=== PATIENT | female | born 1945 | race Caucasian/White ===

== ENCOUNTER 2019-11-10 13:54 | Outpatient (CLI) | payer MEDICARE, SELFPAY ==
[2019-11-10 14:06] LABS: Basophils Absolute Auto 0.1 K/mm3 (0.0-0.1); Basophils Percent Auto 0.8 % (0.2-1.2); Eosinophils Percent Auto 0.3 % (0-4.4); Hematocrit 42.5 % (37.0-47.0); Hemoglobin 14.3 g/dL (12.0-15.0); Immature Granulocyte Absolute 0.02 K/mm3 (0.00-0.031); Immature Granulocyte Percent A 0.2 % (0-0.5); Lymphocytes Absolute Auto 4.21 K/mm3 (0.9-3.2); Lymphocytes Percent Auto 47.8 % (18.3-44.2); Mean Corpuscular HGB Conc 33.6 g/dl (32-36); Mean Corpuscular Hemoglobin 31.8 pg (26-34); Mean Corpuscular Volume 94.4 fl (80-100); Monocytes Absolute Auto 0.8 K/mm3 (0.1-0.6); Monocytes Percent Auto 9.3 % (2.6-8.5); Neutrophils Absolute Auto 3.7 K/mm3 (1.3-6.7); Neutrophils Percent Auto 41.6 % (45.5-73.1); Platelet Count Result 198 k/mm3 (150-375); Red Cell Distribution Width 13.5 % (11.5-14.5); White Blood Count 8.8 K/mm3 (4.5-10.0)
[2019-11-10 14:10] LABS: Blood Urea Nitrogen 8 mg/dL (8-26); Carbon Dioxide 29 mmol/L (22-30); Chloride 102 mmol/L (98-109); Estimated Glomerular Filt Rate > 60; Glucose 123 mg/dL (70-105); Potassium 3.6 mmol/L (3.5-4.9); Sodium 140 mmol/L (138-146)
[2019-11-10 16:46] LABS: Alanine Aminotransferase 16 U/L (4-35); Albumin Level 4.4 g/dL (3.5-5.1); Alkaline Phosphatase 63 U/L (38-126); Aspartate Amino Transferase 25 U/L (14-36); Bilirubin,Total 0.3 mg/dL (0.2-1.3); Blood Urea Nitrogen 9 mg/dL (7-17); Calcium 9.5 mg/dL (8.4-10.2); Carbon Dioxide 29 mmol/L (22-30); Chloride 99 mmol/L (98-107); Estimated Glomerular Filt Rate > 60; Glucose 118 mg/dL (65-105); Lactate Dehydrogenase 403 U/L (313-618); Sodium 139 mmol/L (137-145)
== END 2019-11-10 13:55 | disposition home or self-care (01) ==
PROVIDERS: PCP Internal Medicine; Visit Provider Internal Medicine Hematology & Oncology
DX: C91.10 Chronic lymphocytic leukemia of B-cell type not having achieved remission (principal)
CPT/HCPCS: 36415; 80048; 80053; 83615; 85025

== ENCOUNTER 2020-06-18 13:10 | Outpatient (CLI) | payer MEDICARE, SELFPAY ==
[2020-06-18 13:40] LABS: Basophils Absolute Auto 0.1 K/mm3 (0.0-0.1); Basophils Percent Auto 0.6 % (0.2-1.2); Eosinophils Percent Auto 0.1 % (0-4.4); Hematocrit 43.5 % (37.0-47.0); Hemoglobin 14.8 g/dL (12.0-15.0); Immature Granulocyte Absolute 0.03 K/mm3 (0.00-0.031); Immature Granulocyte Percent A 0.3 % (0-0.5); Lymphocytes Percent Auto 58.7 % (18.3-44.2); Mean Corpuscular Hemoglobin 31.8 pg (26-34); Mean Corpuscular Volume 93.5 fl (80-100); Mean Platelet Volume 9.5 fl (7.4-10.4); Monocytes Absolute Auto 0.5 K/mm3 (0.1-0.6); Monocytes Percent Auto 4.7 % (2.6-8.5); Neutrophils Absolute Auto 3.5 K/mm3 (1.3-6.7); Neutrophils Percent Auto 35.6 % (45.5-73.1); Platelet Count Result 237 k/mm3 (150-375); Red Blood Count 4.65 M/mm3 (4.2-5.4); Red Cell Distribution Width 13.5 % (11.5-14.5); White Blood Count 9.9 K/mm3 (4.5-10.0)
[2020-06-18 13:47] LABS: Atypical Lymphocytes Present; Platelet Estimate Adequate (Adequate)
[2020-06-18 15:12] LABS: Blood Urea Nitrogen 9 mg/dL (8-26); Carbon Dioxide 28 mmol/L (22-30); Chloride 97 mmol/L (98-109); Estimated Glomerular Filt Rate > 60; Glucose 159 mg/dL (70-105); Potassium 3.6 mmol/L (3.5-4.9); Sodium 137 mmol/L (138-146)
[2020-06-18 16:35] LABS: Alanine Aminotransferase 15 U/L (4-35); Albumin Level 4.4 g/dL (3.5-5.1); Alkaline Phosphatase 56 U/L (38-126); Anion Gap 7 mmol/L (8-16); Aspartate Amino Transferase 24 U/L (14-36); Bilirubin,Total 0.6 mg/dL (0.2-1.3); Blood Urea Nitrogen 10 mg/dL (7-17); Calcium 9.6 mg/dL (8.4-10.2); Carbon Dioxide 32 mmol/L (22-30); Chloride 97 mmol/L (98-107); Estimated Glomerular Filt Rate > 60; Glucose 162 mg/dL (65-105); Sodium 136 mmol/L (137-145)
== END 2020-06-18 13:11 | disposition home or self-care (01) ==
PROVIDERS: Visit Provider Internal Medicine Hematology & Oncology
DX: C91.90 Lymphoid leukemia, unspecified not having achieved remission (principal)
CPT/HCPCS: 36415; 80048; 80053; 85025

== ENCOUNTER 2020-06-20 13:10 | Outpatient (CLI) | payer MEDICARE, SELFPAY ==
--- NOTE | ~2020-06-20 | MM_ITS ---
EXAMINATION: MM screening rylee BI w dilshad HISTORY: Screening mammogram TECHNIQUE: Craniocaudal and mediolateral oblique 3-D tomosynthesis images were obtained and synthetic 2-D images were generated. CAD analysis was submitted and interpreted. COMPARISON: 05/10/2018 BREAST PARENCHYMAL COMPOSITION: There are scattered areas of fibroglandular density. FINDINGS: There is no evidence of suspicious mass, calcification, or architectural distortion to sugg est malignancy in either breast. There has been no suspicious interval change. IMPRESSION: 1. No mammographic evidence of malignancy. 2. Recommend routine screening mammography in one year. BI-RADS Category 1: Negative Reviewed, dictated and finalized at location A.
== END 2020-06-20 13:11 | disposition home or self-care (01) ==
LOC: ANHIMG 13:15
DX: Z12.31 Encounter for screening mammogram for malignant neoplasm of breast (principal)
CPT/HCPCS: 77063; 77067

== ENCOUNTER 2020-06-25 10:36 | Outpatient (CLI) | payer MEDICARE, SELFPAY ==
--- NOTE | 2020-06-25 | EST_ITS ---
Patient Info Name: Karen Quevedo Age: 75 years : 1945 Gender: Female Ht: 63 in Wt: 150 lbs BSA: 1.76 m2 Exam Date: 06/25/2020 10:55 AM Exam Location: [facility] Stress Patient Status: Outpatient Admit Date: 06/25/2020 Staff Ordering Physician: PHYSICIAN NOT ON STAFF, NONSTAFF Attending Provider: PHYSICIAN NOT ON STAFF, NONSTAFF Exercise Technologist: Frances Paul RDCS Exam Type: CA stress test treadmill Study Info Indications R07.89 - Other chest pain A regadenoson stress test was performed. Summary 1. Normal sinus rhythm. 2. Low QRS voltage, otherwise normal ECG. 3. Clinically and electrocardiographically negative exercise stress test at 122% of age predicted maximum heart rate. Protocol: [facility] Stress ECG Details Stage: REST Duration (min): 6 min : 4 sec Speed (mph): 0.0 Grade (%): 0 HR (bpm): 76 SBP (mmHg): 109 DBP (mmHg): 64 METS: --- Stage: REST Duration (min): 17 min : 20 sec Speed (mph): 0.0 Grade (%): 0 HR (bpm): 94 SBP (mmHg): 109 DBP (mmHg): 64 METS: --- Stage: STAGE 1 Duration (min): 1 min : 0 sec Speed (mph): 1.7 Grade (%): 10 HR (bpm): 106 SBP (mmHg): 109 DBP (mmHg): 64 METS: --- Stage: STAGE 1 Duration (min): 2 min : 0 sec Speed (mph): 1.7 Grade (%): 10 HR (bpm): 126 SBP (mmHg): 109 DBP (mmHg): 64 METS: --- Stage: STAGE 1 Duration (min): 3 min : 0 sec Speed (mph): 1.7 Grade (%): 10 HR (bpm): 133 SBP (mmHg): 134 DBP (mmHg): 76 METS: --- Stage: STAGE 2 Duration (min): 1 min : 0 sec Speed (mph): 2.5 Grade (%): 12 HR (bpm): 162 SBP (mmHg): 134 DBP (mmHg): 76 METS: --- Stage: STAGE 2 Duration (min): 2 min : 0 sec Speed (mph): 2.5 Grade (%): 12 HR (bpm): 175 SBP (mmHg): 171 DBP (mmHg): 77 METS: --- Stage: STAGE 2 Duration (min): 2 min : 22 sec Speed (mph): 2.5 Grade (%): 12 HR (bpm): 179 SBP (mmHg): 171 DBP (mmHg): 77 METS: --- Stage: RECOVERY Duration (min): 0 min : 37 sec Speed (mph): 0.0 Grade (%): 0 HR (bpm): 166 SBP (mmHg): 171 DBP (mmHg): 77 METS: --- Stage: RECOVERY Duration (min): 1 min : 37 sec Speed (mph): 0.0 Grade (%): 0 HR (bpm): 143 SBP (mmHg): 154 DBP (mmHg): 91 METS: --- Stage: RECOVERY Duration (min): 2 min : 37 sec Speed (mph): 0.0 Grade (%): 0 HR (bpm): 124 SBP (mmHg): 133 DBP (mmHg): 88 METS: --- Stage: RECOVERY Duration (min): 3 min : 37 sec Speed (mph): 0.0 Grade (%): 0 HR (bpm): 116 SBP (mmHg): 133 DBP (mmHg): 88 METS: --- Stage: RECOVERY Duration (min): 4 min : 37 sec Speed (mph): 0.0 Grade (%): 0 HR (bpm): 108 SBP (mmHg): 128 DBP (mmHg): 85 METS: --- Stage: RECOVERY
== END 2020-06-25 10:37 | disposition home or self-care (01) ==
DX: R07.89 Other chest pain (principal)
CPT/HCPCS: 93017

== ENCOUNTER 2020-09-05 06:54 | Outpatient (NON) | payer MEDICARE, SELFPAY ==
[2020-09-05 22:32] LABS: SARS-CoV-2 RNA PCR Positive
== END 2020-09-05 06:55 ==
LOC: ANHCOVIDDT 07:04
DX: U07.1 COVID-19 (principal)
CPT/HCPCS: 87635; C9803; U0003

== ENCOUNTER 2020-12-05 16:32 | Inpatient (IN) | payer MEDICARE, SELFPAY ==
--- NOTE | ~2020-12-05 | XR_ITS ---
EXAMINATION: XR surgery orthopedic DATE: 12/06/2020 13:50 INDICATION: Intertrochanteric nailing of a proximal right femoral fracture. TECHNIQUE: 4 fluoroscopic spot images of the proximal right femur were obtained during procedure perf ormed by Dr. Garcia. Radiologist was not present for the imaging or procedure. The amount of fluoros copy time used during this procedure was 7.1 minutes. COMPARISON: 12/05/2020 FINDINGS: Interval reduction and internal fixation of an intratrochanteric fracture of the proximal right femur with antegrade intramedullary kwadwo, distal interlocking screw and femoral neck dynamic compression sc rew. There is a thin curved opacity projecting over the femoral diaphysis caudal to the intramedullar y kwadwo on one of the fluoroscopic images without correlate on the prior images or the corresponding la teral projection most likely artifact related to material external to the patient although nondisplac ed fracture cannot be absolutely excluded. No other lesions suspicious for fracture. Alignment appear s essentially anatomic. Right hip joint space is relatively preserved. IMPRESSION: 1. Near-anatomic alignment post internal fixation of an intratrochanteric fracture of the proximal ri ght femur. 2. Curvilinear opacity projecting over the right femoral diaphysis inferior to the fixation kwadwo is mo st likely artifactual but would recommend repeat dedicated radiographs to exclude a nondisplaced frac ture. Reviewed, dictated and finalized at location B. IMPRESSION: 1. Near-anatomic alignment post internal fixation of an intratrochanteric fract ure of the proximal right femur. 2. Curvilinear opacity projecting over the right femoral diaphysis inferior to the fixation kwadwo is most likely artifactual but would recommend repeat dedicate d radiographs to exclude a nondisplaced fracture.
--- NOTE | ~2020-12-05 | XR_ITS ---
EXAMINATION: XR hip RT 2V w AP pelvis EXAM DATE: 12/05/2020 17:09 INDICATION: Initial encounter following injury, with pain of the right hip. TECHNIQUE: Right hip frontal, crosstable lateral projections for interpretation. Frontal projection p ganesh. There is no prior study for comparison. FINDINGS: There is acute closed posttraumatic right hip intertrochanteric fracture with only about 5 mm of distraction. No hip dislocation. Pelvic ring appears intact as do the sacral arcuate lines. IMPRESSION: Acute right hip intertrochanteric fracture. Reviewed, dictated and finalized at location G.
--- NOTE | ~2020-12-05 | XR_ITS ---
EXAMINATION: XR chest 1V portable EXAM DATE: 12/05/2020 17:09 INDICATION: Fall, right hip pain. TECHNIQUE: Portable AP frontal chest x-ray was obtained. There is no prior study for comparison. FINDINGS: The lungs are clear. There are no pleural effusions. The cardiomediastinal silhouette is within normal limits. There is no pneumothorax suspected. There are mild bony degenerative changes. IMPRESSION: No acute cardiopulmonary findings. Reviewed, dictated and finalized at location G.
[2020-12-05 16:38] VITALS: BP 113/78; PULSE 73; RESP 10; TEMP 36.5; O2SAT 99
--- NOTE | 2020-12-05 16:39 | ECG_ITS ---
Measurements Intervals [place] Rate: 83 P: 33 OH: 151 QRS: 17 QRSD: 90 T: 42 QT: 376 QTc: 443 Interpretive Statements SINUS RHYTHM BASELINE WANDER- V1 NORMAL ECG Electronically Signed On 12-06-2020 10:01:24 CDT by Pedro Lebron D.O.
--- NOTE | 2020-12-05 16:40 | ED.FALL ---
HPI - Fall General Chief Complaint: Fall Stated Complaint: FALL/L HIP PAIN Time Seen by Provider: 12/05/20 16:36 Source: patient Mode of arrival: EMS Limitations: no limitations History of Present Illness HPI Narrative: This is a 75 year old female with history of right hip pain s/p fall. She was walking into [employer] when she slipped and fell. She fell onto her right hip and she has severe pain. She is unable to move right hip due to her pain. She denies numbness or tingling. She denies LOC or hitting her head. Related Data Home Medications Medication Instructions Recorded Confirmed alendronate 70 mg PO WEEKLY 12/05/20 12/05/20 Allergies Allergy/AdvReac Type Severity Reaction Status Date / Time No Known Allergies Allergy Unverified 07/23/11 11:49 Review of Systems Review of Systems: All systems reviewed & are unremarkable except as noted in HPI and below Cardiovascular: Cardiovascular: Denies chest pain Respiratory: Respiratory: Denies cough and Denies dyspnea Gastrointestinal: Gastrointestinal: Denies abdominal pain and Denies nausea Musculoskeletal: Musculoskeletal: Denies back pain and Reports arthralgias (right hip pain) Neurologic: Denies headache(s) [facility] Past Medical History Medical History (Updated 12/06/20 @ 00:09 by Alyson Elaine MD) Osteoporosis Surgical History Surgical History (Updated 12/05/20 @ 16:49 by Alyson Elaine MD) History of ankle surgery Social History Social History (Updated 12/05/20 @ 16:50 by Alyson Elaine MD) Smoking status: Former smoker Alcohol intake: current Drinks per week: 14 Substance use: never Gender identity (if verbalized by the patient): Female Spiritual care concerns: No Exam Const: General: no acute distress and alert Orientation/consciousness: patient oriented x3 Eyes: EOM: EOMs intact bilaterally Chest: Chest palpation & inspection: normal inspection of the chest Resp: Effort & Inspection: normal respiratory effort and no retractions Auscultation: clear to auscultation bilaterally Cardio: Rate: regular rate Rhythm: regular rhythm Heart sounds: no murmurs GI: GI Palp: Yes Soft to palpation, No Tenderness to palpation present (GI) and No Guarding due to palpation present (GI) Auscultation: normal bowel sounds Skin: General skin exam: normal color Rashes: no rashes Neuro: General: patient oriented x3 and moves all extremities Extrem: Other: TTP right hip Psych: Mental Status: mental status grossly normal Affect: normal affect Course Consultations Consultation #1: I Discussed hip fracture with Dr. Burnham. He states he will consult and patient needs to be admitted to hospitalist Date: 12/05/20 Time: 17:42 Consultation #2: I discussed case with Erma Nguyen who accepts patient to hospitalist service. Date: 12/05/20 Time: 18:10 Vital Signs Vital signs: Vital Signs Temperature 97.7 F 12/05/20 16:38 Pulse Rate 73 12/05/20 16:38 Respiratory Rate 10 L 12/05/20 16:38 Blood Pressure 113/78 12/05/20 16:38 Pulse Oximetry 99 12/05/20 16:38 Temperature 97.6 F 12/05/20 20:30 Pulse Rate 66 12/05/20 20:30 Respiratory Rate 18 12/05/20 20:30 Blood Pressure 108/64 12/05/20 20:30 Pulse Oximetry 99 12/05/20 20:30 MDM - Fall Lab Data Attestation: I reviewed the patient's lab results. Result diagrams: 12/05/20 17:47 12/05/20 17:47 Labs: Lab Results 12/05/20 12/05/20 12/05/20 Range/Units 17:47 17:47 17:47 WBC 12.7 H (4.5-10.0) K/mm3 RBC 4.39 (4.2-5.4) M/mm3 Hgb 13.5 (12.0-15.0) g/dL Hct 40.3 (37.0-47.0) % MCV 91.8 (80-100) fl MCH 30.8 (26-34) pg MCHC 33.5 (32-36) g/dl RDW 14.5 (11.5-14.5) % Plt Count 252 (150-375) k/mm3 MPV 9.7 (7.4-10.4) fl Immature Gran % (Auto) 0.2 (0-0.5) % Neut % (Auto) 37.3 L (45.5-73.1) % Lymph % (Auto) 55.9 H (18.3-44.2) % [place] % (Au
[2020-12-05] MEDS: ONDANSETRON INJ 4 MG/2 ML VIAL IV PUSH ×2 (17:18→19:46)
[2020-12-05] MEDS: HYDROmorphone HCL INJ (*CRX) 1 MG/ML SYR IV PUSH (17:19)
[2020-12-05 17:55] LABS: Basophils Absolute Auto 0.1 K/mm3 (0.0-0.1); Basophils Percent Auto 0.6 % (0.2-1.2); Eosinophils Percent Auto 0.2 % (0-4.4); Hematocrit 40.3 % (37.0-47.0); Hemoglobin 13.5 g/dL (12.0-15.0); Immature Granulocyte Absolute 0.03 K/mm3 (0.00-0.031); Immature Granulocyte Percent A 0.2 % (0-0.5); Lymphocytes Absolute Auto 7.09 K/mm3 (0.9-3.2); Lymphocytes Percent Auto 55.9 % (18.3-44.2); Mean Corpuscular HGB Conc 33.5 g/dl (32-36); Mean Corpuscular Hemoglobin 30.8 pg (26-34); Mean Corpuscular Volume 91.8 fl (80-100); Mean Platelet Volume 9.7 fl (7.4-10.4); Monocytes Absolute Auto 0.7 K/mm3 (0.1-0.6); Monocytes Percent Auto 5.8 % (2.6-8.5); Neutrophils Absolute Auto 4.7 K/mm3 (1.3-6.7); Neutrophils Percent Auto 37.3 % (45.5-73.1); Platelet Count Result 252 k/mm3 (150-375); Red Blood Count 4.39 M/mm3 (4.2-5.4); Red Cell Distribution Width 14.5 % (11.5-14.5); White Blood Count 12.7 K/mm3 (4.5-10.0)
--- NOTE | 2020-12-05 17:55 | PC.NURSE ---
patient is unable to give urine sample at this time. patient declines straight cath.
[2020-12-05 17:56] VITALS: BP 123/70; PULSE 78; RESP 18; O2SAT 99
[2020-12-05 18:04] LABS: INR 0.8; Prothrombin Time 12.1 Seconds (11.1-14.7)
[2020-12-05 18:05] LABS: Partial Thromboplastin Time 22.9 SECONDS (22.3-36.8)
[2020-12-05 18:11] LABS: Alanine Aminotransferase 18 U/L (4-35); Albumin Level 3.9 g/dL (3.5-5.1); Alkaline Phosphatase 62 U/L (38-126); Anion Gap 6 mmol/L (8-16); Aspartate Amino Transferase 30 U/L (14-36); Bilirubin,Total 0.3 mg/dL (0.2-1.3); Blood Urea Nitrogen 14 mg/dL (7-17); Calcium 8.6 mg/dL (8.4-10.2); Carbon Dioxide 25 mmol/L (22-30); Chloride 102 mmol/L (98-107); Estimated CRCL calculation 77 ml/min; Estimated Glomerular Filt Rate > 60; Glucose 94 mg/dL (65-105); Sodium 133 mmol/L (137-145)
[2020-12-05 18:21] LABS: Potassium 3.7 mmol/L (3.4-5.0)
[2020-12-05 19:29] VITALS: BP 110/68; PULSE 68; RESP 16; O2SAT 100
[2020-12-05 20:30] VITALS: BP 108/64; PULSE 66; RESP 18; TEMP 36.4; O2SAT 99
[2020-12-05 21:03] VITALS: BMI 26.5
[2020-12-05] MEDS: LACTATED RINGERS 1,000 ML 125 ML IV CONT (21:04)
--- NOTE | 2020-12-05 21:26 | PC.NURSE ---
This patient, Karen Quevedo, was admitted to 2 Medical Room 259-01. Patient/family oriented to hospital policies and general routines including ID bracelet, bed and alarms, visiting hours, pain management, procedures, bathroom and other care routines, personal items, smoking policy, room service/diet, and visiting hours. Information on how to activate the Rapid Response Team has been discussed. Patient/Family are encouraged to report perceived risks to care and to ask questions if they do not understand what they are told or what they should do.
[2020-12-05 22:00] VITALS: BP 111/65; PULSE 71; RESP 18; TEMP 36.6; O2SAT 98
[2020-12-05] MEDS: HYDROmorphone HCL INJ (*CRX) 1 MG/ML SYR 0.5 MG IV PUSH (22:53)
[2020-12-05 23:32] LABS: Add Urine Microscopic? YES; Appearance Urine Cloudy (Clear); Bilirubin Urine Negative (Negative); Blood Urine Negative (Negative); Color Urine Yellow (Yellow); Glucose Urine UA Negative (Negative); Ketones Urine 1+ mg/dL (Negative); Leukocyte Esterase Ur Negative LEU/UL (Negative); Mucus Urine Few /lpf; Nitrate Urine Negative (Negative); Protein Urine 1+ mg/dL (Negative); RBC Urine 0-2 /hpf (0-2); Specific Grav Ur 1.019 (1.001-1.035); Urobilinogen Urine Negative mg/dL (<2.0)
[2020-12-06] VITALS (18 sets, daily range): BP systolic 101–130; BP diastolic 55–89; PULSE 45–108; RESP 12–20; TEMP 36.2–36.8; O2SAT 94–100; BMI 26.5
[2020-12-06] MEDS: CALCIUM CARBONATE (TUMS) 500 MG (200 MG ELEMENTAL) PO (01:29)
[2020-12-06] MEDS: FAMOTIDINE 20 MG/2 ML VIAL IV PUSH (01:31)
--- NOTE | 2020-12-06 03:09 | PM.IMHP ---
H&P: HPI History of Present Illness Date/Time: 12/06/20 03:09 Chief Complaint: Acute fall and ambulatory dysfunction. Narrative: This is a pleasant 75 year old female who is known to previously be healthy and presented to the hospital yesterday after suffering a fall at the grocery store. The patient walked into [employer] and slipped on a wet floor and landed on her right hip. She could not get up and was in severe pain. She did not suffer any head trauma or loss of consciousness. Plain xray films demonstrated an acute right hip intertrochanteric fracture. The patient denied any fever, chills, nausea, vomiting, chest pain, palpitations, abdominal pain, dysuria, hematuria, diarrhea or LE swelling. Currently her only complaint is right hip pain which is improved when she doens't move. Ortho was consulted by ER provider. We were asked to admit her to the hospital for orthopedics. No other complaints. Review of Systems Review of Systems: All systems reviewed & are unremarkable except as noted in HPI and below PMFSH Past Medical History Medical History Osteoporosis Surgical History Surgical History History of ankle surgery Social History Social History Smoking status: Former smoker Alcohol intake: current Drinks per week: 14 Substance use: never Gender identity (if verbalized by the patient): Female Spiritual care concerns: No Comments Family medical history is reviewed and unremarkable. Meds Home Medications and Allergies Home Medications Medication Instructions Recorded Confirmed Type alendronate 70 mg PO WEEKLY 12/05/20 12/05/20 History Allergies Allergy/AdvReac Type Severity Reaction Status Date / Time No Known Allergies Allergy Unverified 07/23/11 11:49 Vital Signs Vital Signs - 24 hr 12/05/20 16:38 12/05/20 17:56 12/05/20 19:29 Temperature 36.5 C Pulse Rate 73 78 68 Respiratory Rate 10 L 18 16 Blood Pressure 113/78 123/70 110/68 Pulse Oximetry 99 99 100 12/05/20 20:30 Temperature 36.4 C Pulse Rate 66 Respiratory Rate 18 Blood Pressure 108/64 Pulse Oximetry 99 Exam Const: General: cooperative, alert and awake Nutritional Appearance: well nourished Orientation/consciousness: patient oriented x3 HENMT: Head: normal to inspection General nose exam: Normal external nose present Face and sinus: normal facial exam Mouth: Yes Normal oral and palatal mucosa present and Yes oropharynx normal Eyes: Pupils: Equal, round and reactive pupils present EOM: EOMs intact bilaterally Neck: Neck: supple and no JVD Thyroid: thyroid normal Lymphatic: lymphadenopathy not noted Resp: Effort & Inspection: normal respiratory effort Auscultation: clear to auscultation bilaterally Cardio: Rate: regular rate Rhythm: regular rhythm Heart sounds: no murmurs GI: Inspection: normal to inspection Auscultation: normal bowel sounds Skin: General skin exam: normal color and no rashes or lesions noted Neuro: General: patient oriented x3 Cranial nerves: Yes CN's II-XII intact bilaterally and Yes Equal, round and reactive pupils present Speech: normal speech Motor exam (neuro): 5/5 motor strength present throughout Sensory Exam: normal sensation Extrem: General: normal to inspection and no edema Other: Right hip pain w/ manipulation of RLE++ Psych: Mental Status: mental status grossly normal Affect: normal affect H&P: Results Labs Labs: Short CBC 12/05/20 Range/Units 17:47 WBC 12.7 H (4.5-10.0) K/mm3 Hgb 13.5 (12.0-15.0) g/dL Hct 40.3 (37.0-47.0) % Plt Count 252 (150-375) k/mm3 BMP 12/05/20 17:47 Sodium 133 L Potassium 3.7 Chloride 102 Carbon Dioxide 25 BUN 14 Creatinine 0.50 L Glucose 94 Calcium 8.6 Liver Function 12/05/20 Range/Units 17:47
[2020-12-06] MEDS: LACTATED RINGERS 1,000 ML 125 ML IV CONT (05:11)
[2020-12-06] MEDS: HYDROmorphone HCL INJ (*CRX) 1 MG/ML SYR 0.5 MG IV PUSH ×3 (07:45→15:29)
--- NOTE | 2020-12-06 09:18 | PM.CNOR ---
Assessment and Plan Assessment and plan (1) Closed intertrochanteric fracture of right femur: Qualifiers: Encounter type: initial encounter Fracture alignment: nondisplaced Qualified Code(s): S72.144A - Nondisplaced intertrochanteric fracture of right femur, initial encounter for closed fracture Code(s): S72.141A - Displaced intertrochanteric fracture of right femur, initial encounter for closed fracture Status: Acute Assessment and Plan: 75-year-old female admitted status post fall onto the right hip at the grocery store. History, exam and radiographs reviewed with the patient. Radiographs of the right hip reveal an acute right hip intertrochanteric fracture. Discussed condition, nature, etiology and course of natural history. Conservative and operative treatment options reviewed as well as the risks and benefits of each. Patient would like to proceed with surgical intervention at this time. Discussed Right Intramedullary Hip Nail Risks of surgery including but not limited to neurovascular damage, wound complications, blood clot, pulmonary embolus, stroke, myocardial infarction, anesthetic risks up to and including were reviewed. Continued pain and possible dysfunction were explained. No guarantees were offered. The patient understands and wishes to proceed. Plan: Right Intramedullary Hip Nail by Dr. Garcia pending medical clearance NPO in the interim. Pain control. Ice Lateral Hip. Bedrest. History of Present Illness HPI Consult date: 12/06/20 Requesting physician: Alyson Elaine MD Consult reason: fracture ( Right Hip Fracture ) Chief complaint: closed right intertrochanteric fracture femur Narrative: 75-year-old female admitted to [facility] status post fall at [facility] in [place], [place] after slipping on water. Patient reports having walked into the store and slipped on water and fell onto the right side was unable to get up due to extreme pain. She was then admitted to [facility] and radiographs of the right hip were obtained. Radiographs of the right hip revealed an acute right hip intertrochanteric fracture. orthopedic consult requested for fracture management. Patient admitted to the hospitalist service. Review of Systems Constitutional: Constitutional: Reports no additional constitutional complaints, Denies chills, Denies fatigue, Denies fever(s), Denies headache(s) and Denies weakness Eyes: Eyes: Denies change in vision ENT: Reports Normal hearing present and Denies headache(s) Cardiovascular: Cardiovascular: Denies chest pain and Denies dyspnea Respiratory: Respiratory: Denies cough, Denies dyspnea and Denies wheezing Gastrointestinal: Gastrointestinal: Denies constipation, Denies diarrhea, Denies nausea and Denies vomiting Genitourinary: Genitourinary: Denies hematuria, Denies dysuria and Denies urinary urgency Musculoskeletal: Musculoskeletal: Reports as per HPI, Denies numbness and Denies tingling Integumentary/Breasts: Skin/Breast: Reports as per HPI Neurologic: Reports as per HPI, Reports Normal hearing present, Denies headache(s), Denies numbness, Denies tingling and Denies weakness Psychiatric: Psychiatric: Reports no additional psychiatric complaints Endocrine: Endocrine: Reports no additional endocrine complaints and Denies fatigue Hematologic/Lymphatic: Hematologic/Lymphatic: Reports no additional hematologic/lymphatic complaints Allergic/Immunologic: Allergic/Immunologic: Reports no additional allergic/immunologic complaints and Denies wheezing PMFSH Past Medical History Medical History Osteoporosis Surgical History Surgical History (Updated 12/06/20 @ 09:24 by GA Slade) History of ankle surgery History of right foot and ankle surgery approximately 20 years ago. Patient is unable to describe nature of surgery. History of breast lump removal So
--- NOTE | 2020-12-06 09:41 | WPDANESEPPF ---
Anes - Initial Pre Proc Eval Procedure: Operation Date: 12/06/20 12:00 Proposed Procedures p Right Intertrochanteric Nail - Sal Garcia MD Date/Time: 12/06/20 09:41 Surgeon: Noelle Hussein PA-C Pre Op Diagnosis: closed right intertrochanteric fracture femur Patient Data Age: 75 Gender: F Height: 1.6 m Weight: 67.9 kg Last Vital Signs Temp 36.7 C 12/06/20 06:00 Pulse 70 12/06/20 06:00 Resp 16 12/06/20 06:00 BP 101/55 L 12/06/20 06:00 Pulse Ox 98 12/06/20 06:00 Allergies Allergy/AdvReac Type Severity Reaction Status Date / Time No Known Allergies Allergy Unverified 07/23/11 11:49 Home Medications Medication Instructions Recorded Confirmed Type alendronate 70 mg PO WEEKLY 12/05/20 12/05/20 History Laboratory Tests 12/05/20 12/05/20 12/05/20 17:47 17:47 17:47 WBC 12.7 K/mm3 H K/mm3 (4.5-10.0) RBC 4.39 M/mm3 M/mm3 (4.2-5.4) Hgb 13.5 g/dL g/dL (12.0-15.0) Hct 40.3 % % (37.0-47.0) MCV 91.8 fl fl (80-100) MCH 30.8 pg pg (26-34) MCHC 33.5 g/dl g/dl (32-36) RDW 14.5 % % (11.5-14.5) Plt Count 252 k/mm3 k/mm3 (150-375) MPV 9.7 fl fl (7.4-10.4) Immature Gran % (Auto) 0.2 % % (0-0.5) Neut % (Auto) 37.3 % L % (45.5-73.1) Lymph % (Auto) 55.9 % H % (18.3-44.2) [place] % (Auto) 5.8 % % (2.6-8.5) Eos % (Auto) 0.2 % % (0-4.4) Baso % (Auto) 0.6 % % (0.2-1.2) Lymph # (Auto) 7.09 K/mm3 H K/mm3 (0.9-3.2) [place] # (Auto) 0.7 K/mm3 H K/mm3 (0.1-0.6) Eos # (Auto) 0.0 K/mm3 K/mm3 (0-0.3) Baso # (Auto) 0.1 K/mm3 K/mm3 (0.0-0.1) Abs Immat Gran (auto) 0.03 K/mm3 K/mm3 (0.00-0.031) Absolute Neuts (auto) 4.7 K/mm3 K/mm3 (1.3-6.7) Absolute Nucleated RBC 0.0 K/mm3 K/mm3 (0.0-0.012) Nucleated RBC % 0.0 % % (0.0-0.2) PT 12.1 Seconds Seconds (11.1-14.7) INR 0.8 APTT 22.9 SECONDS SECONDS (22.3-36.8) Sodium 133 mmol/L L mmol/L (137-145) Potassium 3.7 mmol/L mmol/L (3.4-5.0) Chloride 102 mmol/L mmol/L (98-107) Carbon Dioxide 25 mmol/L mmol/L (22-30) Anion Gap 6 mmol/L L mmol/L (8-16) BUN 14 mg/dL mg/dL (7-17) Creatinine 0.50 mg/dL L mg/dL (0.7-1.0) Estim Creat Clear Calc 77 ml/min ml/min Estimated GFR > 60 (59 - ) Glucose 94 mg/dL mg/dL (65-105) Calcium 8.6 mg/dL mg/dL (8.4-10.2) Total Bilirubin 0.3 mg/dL mg/dL (0.2-1.3) AST 30 U/L U/L (14-36) ALT 18 U/L U/L (4-35) Alkaline Phosphatase 62 U/L U/L (38-126) Total Protein 6.0 g/dL L g/dL (6.3-8.2) Albumin 3.9 g/dL g/dL (3.5-5.1) Urine Color Urine Appearance Urine pH Ur Specific [place] Urine Protein Urine Glucose (UA) Urine Ketones Ur Blood (Man) Urine Nitrate Urine Bilirubin Urine Urobilinogen Leukocyte Esterase Rfl Urine RBC Urine WBC Urine Mucus 12/05/20 23:14 WBC RBC Hgb Hct MCV MCH MCHC RDW Plt Count MPV Immature Gran % (Auto) Neut % (Auto) Lymph % (Auto) [place] % (Auto) Eos % (Auto) Baso % (Auto) Lymph # (Auto) [place] # (Auto) Eos # (Auto) Baso # (Auto) Abs Immat Gran (auto) Absolute Neuts (auto) Absolute Nucleated RBC Nucleated RBC % PT INR APTT Sodium Potassium Chloride Carbon Dioxide Anion Gap BUN Creatinine Estim Creat Clear Calc
[2020-12-06] MEDS: LACTATED RINGERS 1,000 ML 30 ML IV CONT ×2 (11:02→14:08)
[2020-12-06] MEDS: TRANEXAMIC ACID 1,000MG/ISO100 1,000 MG/100 ML BAG 200 MG IVPB (11:17)
--- NOTE | 2020-12-06 11:18 | PCNSR ---
On 12/06/20, the student, Tracy Diaz, provided care and completed [place] hospital documentation on this patient. I have reviewed the student's documentation and agree with the findings.
--- NOTE | 2020-12-06 11:45 | WPDHPUPDATE1 ---
History and Physical Update Update Date/Time: 12/06/20 11:45 History and Physical has been reviewed, including an updated exam of the patient. There are NO changes in the patient's condition. Risks, benefits, and alternatives have been discussed and questions answered. Patient agrees to proceed with procedure.
[2020-12-06] MEDS: ceFAZolin 2 GM/D5W 50 ML 2 GM/50 ML BAG IVPB ×2 (12:06→20:13)
--- NOTE | 2020-12-06 12:20 | PC.NURSE ---
Pt to OR per bed 12/06/20 1030.
[2020-12-06] MEDS: fentaNYL CITRATE INJ (*CRX) 100 MCG/2 ML VIAL 25 MCG IV PUSH ×4 (14:27→14:47)
--- NOTE | 2020-12-06 16:12 | PM.PROC ---
Procedure Note - Detailed Date of procedure: 12/06/20 Pre-op diagnosis: closed right intertrochanteric fracture femur Post-op diagnosis: same Procedure performed: INSERTION OF GAMMA ANDRES RIGHT HIP FRACTURE Description of procedure: THE PATIENT WAS TAKN TO THE OR AND PLACED ON A FRACTURE TABLE AFTER HAVEN BEEN GIVEN GENERAL ANESTHESIA. THE RIGHT LOWER EXTREMITY WAS PLACED IN A TRACTION BOOT AND USING SOME TRACTION AND INTERNAL ROTATION THE INNER TROCH FRACTURE WAS REDUCED TO ANATOMIC POSITION. NEXT THE RIGHT LOWER EXTREMITY WAS PREPPED AND DRAPED IN THE STERILE FASHION. AN INCISION WAS MADE PROXIMAL TO THE TIP OF THE GREATER TROCHANTER AND DISSECTION CONTINUED TILL THE TIP OF THE GREATER TROCHANTER WAS PALPATED. A GUIDE WAS PLACED DOWN THE FEMORAL CANAL AND PAST THE FRACTURE SITE. THIS WAS CHECKED ON FLUOROSCOPY AND FOUND TO BE IN GOOD POSITION. AN INITIAL REAMER WAS USED TO REAM THE FEMORAL CANAL. AN 11 BY 180 MM GAMMA ANDRES WAS INSERTED TILL THE CORRECT POSITION WAS IDENTIFIED ON XRAY. A GUIDE PIN WAS INSERTED AT 125 DEG ANGLE TILL IT REACHED THE TIP OF THE SUB CHONDRAL BONE SEEN ON XRAY. AFTER REAMING, LAG SCREW WAS INSERTED AT 125 DEG ANGLE MEASURING 110 MM. XRAYS SHOWED IT TO BE IN GOOD POSITION. THE LAG SCREW WAS LOCKED PROXIMALLY WITH A LOCKING SCREW. NEXT A DISTAL LOCKING SCREW WAS PLACED ACROSS THE ANDRES AND WAS IN GOOD POSITION ON XRAY. THE TRACTION WAS RELEASED. THE WOUNDS WERE WASHED. THE DEEP FASCIA WAS REPAIRED WITH 0 VICRYL SUTURE, THE SUB CUTANEOUS LAYER WITH 2-0 VICRYL, AND THE SKIN WITH RAAD. THE WOUNDS WERE WASHED AND THEN STERILE DRESSING WAS APPLIED. PATIENT WAS EXTUBATED AND SENT TO RECOVERY ROOM. Anesthesia: GLMA Surgeon: Sal Garcia MD Estimated blood loss (mL): 750 Drains: No Packing: No Pathology: none sent Complications: No immediate complications Condition: stable Disposition: PACU
[2020-12-06] MEDS: DEXTROSE 5%/0.45% SOD CHL 1,000 ML 80 ML IV CONT (16:45)
[2020-12-06] MEDS: ONDANSETRON INJ 4 MG/2 ML VIAL IV PUSH ×2 (16:45→20:13)
[2020-12-06] MEDS: HYDROcodone/acetaminophen (*CRX) 7.5-325 MG TABLET 1 TAB PO (16:59)
[2020-12-06] MEDS: DOCUSATE SODIUM 100 MG CAPSULE PO (17:00)
--- NOTE | 2020-12-06 17:08 | PM.IMPN ---
Progress Note: A&P Assessment and Plan (1) Closed intertrochanteric fracture of right femur: Qualifiers: Encounter type: initial encounter Fracture alignment: nondisplaced Qualified Code(s): S72.144A - Nondisplaced intertrochanteric fracture of right femur, initial encounter for closed fracture Code(s): S72.141A - Displaced intertrochanteric fracture of right femur, initial encounter for closed fracture Status: Acute Assessment and Plan: Patient had slipped and fallen prior to arrival and had sudden pain to her right hip and was unable to get up. Found to have a intertrochanteric fracture of her right hip. She underwent surgery on 12/06/[address] Garcia. Dunham catheter, DC per ortho. Continue pain control as needed, per ortho. Discharge planning per it Ortho PT OT have been ordered Incentive spirometer to be used postop Continue monitoring. (2) Osteoporosis: Code(s): M81.0 - Age-related osteoporosis without current pathological fracture Status: Inactive Assessment and Plan: Continue her alendronate weekly. Time Spent With Patient Time with patient: 25 - 35 minutes Subjective Date/time seen: 12/06/20 17:08 Interval history: Date of service 12/06/2020: Patient is drowsy after coming back from surgery on her hip. She still has significant pain to her hip and feels like she never had surgery. She is having some nausea at this time postop from anesthesia. Pain. She denies any fevers, chills, abdominal pain, constipation, diarrhea, leg swelling, calf pain, lightheadedness, dizziness or any other symptoms at this time. Review of Systems Review of Systems: All systems reviewed & are unremarkable except as noted in HPI and below Exam Narrative: Exam Narrative: General: 75-year-old woman laying flat in bed with head elevated at 40?, resting comfortably on 2 L of oxygen at this time postop, with her sister at bedside. Appears comfortable. In no acute distress. Skin: No jaundice or cyanosis. Good skin turgor. Neck: Full range of motion. Supple. Respiratory: Lungs are clear to auscultation bilaterally. No wheezing, rales or rhonchi. No bony chest wall tenderness. Cardiovascular: The heart has a regular rate and rhythm without murmur. Lower extremities: Right hip with dressing to lateral aspect. No lower extremity edema. Distal pulses are easily palpated. No calf tenderness to palpation. Gastrointestinal: The abdomen is soft, nontender and nondistended with active bowel sounds. Psychiatric: Lucid and oriented. Memory intact. Neurologic: No focal deficits. Speech is clear. No facial drooping. Objective Data Vital Signs Vital Signs: Vital Signs - 24 hr 12/05/20 17:56 12/05/20 19:29 12/05/20 20:30 Temperature 97.6 F Pulse Rate 78 68 66 Respiratory Rate 18 16 18 Blood Pressure 123/70 110/68 108/64 Pulse Oximetry 99 100 99 12/05/20 22:00 12/06/20 06:00 12/06/20 09:59 Temperature 97.8 F 98.0 F Pulse Rate 71 70 45 L Respiratory Rate 18 16 16 Blood Pressure 111/65 101/55 L Pulse Oximetry 98 98 99 12/06/20 10:49 12/06/20 14:08 12/06/20 14:15 Temperature 97.5 F L 98.3 F Pulse Rate 60 108 H 101 H Respiratory Rate 16 18 18 Blood Pressure 113/61 127/73 130/79 Pulse Oximetry 95 100 100 12/06/20 14:30 12/06/20 14:45 12/06/20 15:00 Temperature Pulse Rate 99 85 87 Respiratory Rate 16 14 18 Blood Pressure 108/81 130/72 127/70 Pulse Oximetry 94 96 98 12/06/20 15:15 12/06/20 15:30 12/06/20 15:45 Temperature Pulse Rate 75 90 95 Respiratory Rate 12 16 20 Blood Pressure 126/64 119/75 120/78 Pulse Oximetry 97 97 96 12/06/20 16:10 12/06/20 16:20 12/06/20 16:25 Temperature 98.1 F 98.1 F Pulse Rate 68 92 Respiratory Rate 16 16 Blood Pressure 120/67 118/67 Pulse Oximetry 100 98 96 12/06/20 16:40 Temperature 98.1 F Pulse Rate 92
[2020-12-06] MEDS: FAMOTIDINE 20 MG TABLET PO (20:14)
[2020-12-07] VITALS (7 sets, daily range): BP systolic 102–113; BP diastolic 50–69; PULSE 66–92; RESP 12–18; TEMP 36.1–36.9; O2SAT 96–99
[2020-12-07] MEDS: ceFAZolin 2 GM/D5W 50 ML 2 GM/50 ML BAG IVPB ×2 (04:03→11:59)
[2020-12-07 05:31] LABS: Basophils Percent Auto 0.2 % (0.2-1.2); Hematocrit 33.2 % (37.0-47.0); Hemoglobin 11.3 g/dL (12.0-15.0); Immature Granulocyte Absolute 0.05 K/mm3 (0.00-0.031); Immature Granulocyte Percent A 0.4 % (0-0.5); Lymphocytes Absolute Auto 7.09 K/mm3 (0.9-3.2); Lymphocytes Percent Auto 50.1 % (18.3-44.2); Mean Corpuscular Hemoglobin 30.6 pg (26-34); Mean Platelet Volume 9.7 fl (7.4-10.4); Monocytes Absolute Auto 1.3 K/mm3 (0.1-0.6); Monocytes Percent Auto 8.9 % (2.6-8.5); Neutrophils Absolute Auto 5.7 K/mm3 (1.3-6.7); Neutrophils Percent Auto 40.4 % (45.5-73.1); Platelet Count Result 203 k/mm3 (150-375); Red Blood Count 3.69 M/mm3 (4.2-5.4); Red Cell Distribution Width 14.1 % (11.5-14.5); White Blood Count 14.2 K/mm3 (4.5-10.0)
[2020-12-07] MEDS: DEXTROSE 5%/0.45% SOD CHL 1,000 ML 80 ML IV CONT (05:36)
[2020-12-07 05:50] LABS: Anion Gap 1 mmol/L (8-16); Blood Urea Nitrogen 6 mg/dL (7-17); Carbon Dioxide 30 mmol/L (22-30); Chloride 102 mmol/L (98-107); Estimated CRCL calculation 68 ml/min; Estimated Glomerular Filt Rate > 60; Glucose 124 mg/dL (65-105); Potassium 3.4 mmol/L (3.4-5.0); Sodium 133 mmol/L (137-145)
[2020-12-07 05:56] LABS: Atypical Lymphocytes Present; Platelet Estimate Adequate (Adequate)
[2020-12-07] MEDS: DOCUSATE SODIUM 100 MG CAPSULE PO ×2 (07:54→16:57)
[2020-12-07] MEDS: ACETAMINOPHEN 325 MG TABLET 650 MG PO (07:54)
[2020-12-07] MEDS: ENOXAPARIN 40 MG/0.4 ML SYRINGE SUB-Q (07:54)
[2020-12-07] MEDS: FAMOTIDINE 20 MG TABLET PO ×2 (07:54→20:51)
--- NOTE | 2020-12-07 09:47 | WPDANESPN ---
Anes - Prog Note Post-Op Date/Time: 12/07/20 09:47 Cardiovascular status: normal Respiratory status: normal Airway patency: baseline Mental status: baseline Post-Op hydration status: normal Vital Signs: Last Vital Signs Temp 36.3 C L 12/07/20 08:30 Pulse 81 12/07/20 08:30 Resp 18 12/07/20 08:30 BP 110/66 12/07/20 08:30 Pulse Ox 97 12/07/20 08:30 Pain Score (VAS): 3 I/O: Intake & Output 12/06/20 12/07/20 12/07/20 23:59 07:59 15:59 Intake Total 1320 1800 397 Output Total 1800 Balance 1320 0 397 Laboratory Tests 12/07/20 05:12 12/07/20 05:12 12/07/20 12/07/20 12/07/20 05:12 05:12 08:51 WBC 14.2 H RBC 3.69 L Hgb 11.3 L Hct 33.2 L MCV 90.0 MCH 30.6 MCHC 34.0 RDW 14.1 Plt Count 203 MPV 9.7 Immature Gran % (Auto) 0.4 Neut % (Auto) 40.4 L Lymph % (Auto) 50.1 H [place] % (Auto) 8.9 H Eos % (Auto) 0.0 Baso % (Auto) 0.2 Lymph # (Auto) 7.09 H [place] # (Auto) 1.3 H Eos # (Auto) 0.0 Baso # (Auto) 0.0 Abs Immat Gran (auto) 0.05 H Absolute Neuts (auto) 5.7 Absolute Nucleated RBC 0.0 Nucleated RBC % 0.0 Atypical Lymphocytes Present Platelet Estimate Adequate Sodium 133 L Potassium 3.4 Chloride 102 Carbon Dioxide 30 Anion Gap 1 L BUN 6 L D Creatinine 0.50 L Estim Creat Clear Calc 68 Estimated GFR > 60 Glucose 124 H Calcium 8.0 L Magnesium 2.0 JAK2 V617F Specimen Pending JAK2 V617F Gene Pending JAK2 V617F Exon Pending JAK2 V617F Mut Indic Pending JAK2 V617F Mutation Pending JAK2 V617F Mut Type Pending JAK2 V617F Mut Freq Pending JAK2 V617F Mut Reference Pending JAK2 12-15 Nucleotide Chg Pending JAK2 12-15 Amino Acid Chg Pending JAK2 Interpret/Report Pending JAK2 V617F Comment Pending Ref Lab Specimen ID Pending Post-procedural complaints: none Patient Feedback: Patient satisfied with anesthetic care.
--- NOTE | 2020-12-07 10:45 | PM.PNORT ---
Progress Note: A&P Assessment and Plan (1) Closed intertrochanteric fracture of right femur: Qualifiers: Encounter type: initial encounter Fracture alignment: nondisplaced Qualified Code(s): S72.144A - Nondisplaced intertrochanteric fracture of right femur, initial encounter for closed fracture Code(s): S72.141A - Displaced intertrochanteric fracture of right femur, initial encounter for closed fracture Status: Acute Assessment and Plan: POD #1: INSERTION OF GAMMA ANDRES RIGHT HIP FRACTURE Continue PT/OT. TTWB RLE. Walker. FALL RISK. Monitor dressing. Change Daily. Continue pain control. Ice lateral hip. Continue SCDs/Incentive spirometry. DVT prophylaxis. Dispo: Home with Home Health vs Acute Rehab pending evaluation by PT/OT and medical clearance. Follow up appointment will be determined based on discharge plan. Subjective Subjective Date/Time Seen: 12/07/20 10:45 POD #1: INSERTION OF GAMMA ANDRES RIGHT HIP FRACTURE No new complaints. Pain well controlled. Wishes to go home upon discharge. Review of Systems Review of Systems: All systems reviewed & are unremarkable except as noted in HPI and below Constitutional: Constitutional: Denies chills, Denies fever(s), Denies headache(s), Denies lethargy and Reports weakness ENT: Denies headache(s) Cardiovascular: Cardiovascular: Denies chest pain, Denies diaphoresis, Denies lightheadedness, Denies palpitations, Denies dyspnea and Denies dyspnea on exertion Respiratory: Respiratory: Denies cough, Denies dyspnea and Denies dyspnea on exertion Gastrointestinal: Gastrointestinal: Denies constipation, Denies diarrhea, Denies nausea and Denies vomiting Genitourinary: Genitourinary: Reports urinary frequency, Denies dysuria and Denies urinary hesitancy Musculoskeletal: Musculoskeletal: Reports joint swelling (Right Hip ) and Reports limited range of motion (Right Hip due to recent surgery ) Neurologic: Denies headache(s) and Reports weakness Endocrine: Endocrine: Denies palpitations Exam Const: General: comfortable and no acute distress Resp: Effort & Inspection: normal respiratory effort Cardio: Rate: regular rate Rhythm: regular rhythm GI: Inspection: non-distended Skin: General skin exam: normal color Other: Incision right hip c/d/i. Surrounding tissue without redness/warmth. Mild swelling consistent with recent surgery. No drainage. Neuro: Cognition (Neuro): normal cognition Speech: normal speech Other: Strength RLE decreased +ankle dorsiflexion/plantarflexion. NV intact. Moves toes. Sensation intact to light touch. Extrem: Right lower extremity: normal to inspection, normal capillary refill and hip/thigh Details: tenderness Location: of the hip (Thigh soft ) Location: laterally and anteriorly, swelling Location: at the hip, abnormal ROM (limited consistent with recent surgery ) and other (Incision c/d/i. ); no deformity and no unusual warmth Objective Data Vital Signs Vital Signs: Vital Signs - 24 hr 12/06/20 10:49 12/06/20 14:08 12/06/20 14:15 Temperature 36.4 C L 36.8 C Pulse Rate 60 108 H 101 H Respiratory Rate 16 18 18 Blood Pressure 113/61 127/73 130/79 Pulse Oximetry 95 100 100 12/06/20 14:30 12/06/20 14:45 12/06/20 15:00 Temperature Pulse Rate 99 85 87 Respiratory Rate 16 14 18 Blood Pressure 108/81 130/72 127/70 Pulse Oximetry 94 96 98 12/06/20 15:15 12/06/20 15:30 12/06/20 15:45 Temperature Pulse Rate 75 90 95 Respiratory Rate 12 16 20 Blood Pressure 126/64 119/75 120/78 Pulse Oximetry 97 97 96 12/06/20 16:10 12/06/20 16:20 12/06/20 16:25 Temperature 36.7 C 36.7 C Pulse Rate 68 92 Respiratory Rate 16 16 Blood Pressure 120/67 118/67 Pulse Oximetry 100 98 96 12/06/20 16:40 12/06/20 17:10 12/06/20 18:00 Temperature 36.7 C 36.7 C 36.6 C Pulse Rate 92 93 90 Respiratory Rate 18 18 18 Blood Pressure 125/68 127/89 104/71 Pulse Oximetry 99 97 99 12/06/20 22:00 12/07
--- NOTE | 2020-12-07 14:08 | PM.IMPN ---
Progress Note: A&P Assessment and Plan (1) Closed intertrochanteric fracture of right femur: Qualifiers: Encounter type: initial encounter Fracture alignment: nondisplaced Qualified Code(s): S72.144A - Nondisplaced intertrochanteric fracture of right femur, initial encounter for closed fracture Code(s): S72.141A - Displaced intertrochanteric fracture of right femur, initial encounter for closed fracture Status: Acute Assessment and Plan: Patient had slipped and fallen prior to arrival and had sudden pain to her right hip and was unable to get up. Found to have a intertrochanteric fracture of her right hip. She underwent surgery on 12/06/[address] Garcia. Dunham catheter in place, waiting for D/c by Ortho Continue pain control as needed, per ortho. Discharge planning per it Ortho. PT OT have been ordered Considering [facility] after discharge which I feel would be a great place for her to go prior to discharge. Incentive spirometer to be used postop Continue monitoring. (2) Osteoporosis: Code(s): M81.0 - Age-related osteoporosis without current pathological fracture Status: Inactive Assessment and Plan: Continue her alendronate weekly. (3) Elevated lymphocyte count: Code(s): D72.820 - Lymphocytosis (symptomatic) Status: Acute Assessment and Plan: Review of prior labs shows elevated lymphocytes and atypical lymphocytes. Could have underlying CLL vs underlying bone marrow cause. Will check peripheral smear and Jak2 which is pending. Time Spent With Patient Time with patient: 25 - 35 minutes Subjective Date/time seen: 12/07/20 14:08 Interval history: Date of service 12/07/2020: She is doing well post-op. Having some pain to right and trying to elevate it right now. She did have a bowel movement this moring. Not very hungry, reports very dry mouth. Denies any nausea or abdominal pain. She denies any fevers, chills, diarrhea, leg swelling, calf pain, lightheadedness, dizziness or any other symptoms at this time. Review of Systems Review of Systems: All systems reviewed & are unremarkable except as noted in HPI and below Exam Narrative: Exam Narrative: General: 75-year-old woman laying flat in bed with head elevated at 40?, resting comfortably on room air, with her sister at bedside. Appears comfortable. In no acute distress. Skin: No jaundice or cyanosis. Good skin turgor. Neck: Full range of motion. Supple. Respiratory: Lungs are clear to auscultation bilaterally. No wheezing, rales or rhonchi. No bony chest wall tenderness. Cardiovascular: The heart has a regular rate and rhythm without murmur. Lower extremities: Right hip with dressing to lateral aspect. No lower extremity edema. Distal pulses are easily palpated. No calf tenderness to palpation. Gastrointestinal: The abdomen is soft, nontender and nondistended with active bowel sounds. Psychiatric: Lucid and oriented. Memory intact. Neurologic: No focal deficits. Speech is clear. No facial drooping. Objective Data Vital Signs Vital Signs: Vital Signs - 24 hr 12/06/20 14:15 12/06/20 14:30 12/06/20 14:45 Temperature Pulse Rate 101 H 99 85 Respiratory Rate 18 16 14 Blood Pressure 130/79 108/81 130/72 Pulse Oximetry 100 94 96 12/06/20 15:00 12/06/20 15:15 12/06/20 15:30 Temperature Pulse Rate 87 75 90 Respiratory Rate 18 12 16 Blood Pressure 127/70 126/64 119/75 Pulse Oximetry 98 97 97 12/06/20 15:45 12/06/20 16:10 12/06/20 16:20 Temperature 98.1 F Pulse Rate 95 68 Respiratory Rate 20 16 Blood Pressure 120/78 120/67 Pulse Oximetry 96 100 98 12/06/20 16:25 12/06/20 16:40 12/06/20 17:10 Temperature 98.1 F 98.1 F 98.1 F Pulse Rate 92 92 93 Respiratory Rate 16 18 18 Blood Pressure 118/67 125/68 127/89 Pulse Oxi
--- NOTE | 2020-12-07 14:53 | PC.NURSE ---
On 12/07/20, the student, [Sia Saldaña], provided care and completed [facility] documentation on this patient. I have reviewed the student's documentation and agree with the findings.
[2020-12-08 00:25] LABS: SARS-CoV-2 RNA PCR Negative
[2020-12-08 05:47] LABS: Anion Gap 0 mmol/L (8-16); Blood Urea Nitrogen 6 mg/dL (7-17); Calcium 7.7 mg/dL (8.4-10.2); Carbon Dioxide 32 mmol/L (22-30); Chloride 104 mmol/L (98-107); Estimated CRCL calculation 83 ml/min; Estimated Glomerular Filt Rate > 60; Glucose 87 mg/dL (65-105); Potassium 3.2 mmol/L (3.4-5.0); Sodium 136 mmol/L (137-145)
[2020-12-08 06:00] VITALS: BP 105/62; PULSE 78; RESP 14; TEMP 36.7; O2SAT 93
[2020-12-08 07:38] LABS: Basophils Absolute Auto 0.1 K/mm3 (0.0-0.1); Basophils Percent Auto 0.5 % (0.2-1.2); Eosinophils Absolute Auto 0.1 K/mm3 (0-0.3); Eosinophils Percent Auto 0.4 % (0-4.4); Hematocrit 32.5 % (37.0-47.0); Hemoglobin 11.1 g/dL (12.0-15.0); Immature Granulocyte Absolute 0.04 K/mm3 (0.00-0.031); Immature Granulocyte Percent A 0.3 % (0-0.5); Lymphocytes Absolute Auto 6.33 K/mm3 (0.9-3.2); Lymphocytes Percent Auto 49.3 % (18.3-44.2); Mean Corpuscular HGB Conc 34.2 g/dl (32-36); Mean Corpuscular Hemoglobin 31.2 pg (26-34); Mean Corpuscular Volume 91.3 fl (80-100); Mean Platelet Volume 10.3 fl (7.4-10.4); Monocytes Absolute Auto 1.3 K/mm3 (0.1-0.6); Monocytes Percent Auto 9.9 % (2.6-8.5); Neutrophils Absolute Auto 5.1 K/mm3 (1.3-6.7); Neutrophils Percent Auto 39.6 % (45.5-73.1); Platelet Count Result 204 k/mm3 (150-375); Red Blood Count 3.56 M/mm3 (4.2-5.4); Red Cell Distribution Width 14.6 % (11.5-14.5); White Blood Count 12.9 K/mm3 (4.5-10.0)
[2020-12-08] MEDS: POTASSIUM CHLORIDE 20 MEQ TABLET 40 MEQ PO (07:41)
[2020-12-08] MEDS: DOCUSATE SODIUM 100 MG CAPSULE PO ×2 (08:37→16:50)
[2020-12-08 08:38] VITALS: RESP 16; O2SAT 94
[2020-12-08] MEDS: ENOXAPARIN 40 MG/0.4 ML SYRINGE SUB-Q (08:38)
[2020-12-08] MEDS: FAMOTIDINE 20 MG TABLET PO ×2 (08:38→21:29)
[2020-12-08] MEDS: ACETAMINOPHEN 325 MG TABLET 650 MG PO (12:58)
--- NOTE | 2020-12-08 13:38 | PM.PNORT ---
Progress Note: A&P Additional Plan POD 2 DOING WELL. [facility] WHEN STABLE. WILL F/U IN 6 WEEKS ORTHO.LOVENOX X 4 WEEKS. Subjective Subjective Date/Time Seen: 12/08/20 13:38 Post Op day: 2 Interval history: POD 2 DOING WELL. 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 [employer] SIGN Objective Data Vital Signs Vital Signs: Vital Signs - 24 hr 12/07/20 17:38 12/07/20 22:00 12/08/20 06:00 Temperature 36.9 C 36.8 C 36.7 C Pulse Rate 92 88 78 Respiratory Rate 12 16 14 Blood Pressure 113/69 102/59 L 105/62 Pulse Oximetry 96 97 93 12/08/20 08:38 Temperature Pulse Rate Respiratory Rate 16 Blood Pressure Pulse Oximetry 94 Intake/Output Intake/Output: Intake & Output 12/05/20 12/06/20 12/07/20 12/08/20 23:59 23:59 23:59 23:59 Intake Total 3120 3197 1080 Output Total 247 8809 4355 Balance 8772 -4821 -714 Meds/Results Medications: Active Medications Generic Name Dose Route Start Last Admin Trade Name Freq PRN Reason Stop Dose Admin Acetaminophen 650 mg 12/06/20 15:53 12/08/20 12:58 Acetaminophen 325 Mg Tablet PO 650 mg Q6H PRN Administration Pain Rated 1-3 Hydrocodone Bitart/Acetaminophen 1 tab 12/06/20 15:53 12/06/20 16:59 Hydrocodone/Acetaminophen (*Crx) 7.5-325 Mg Tablet PO 1 tab Q6H PRN Administration Pain Rated 4-6 Diazepam 5 mg 12/06/20 15:53 Diazepam (*Crx) 5 Mg Tablet PO Q8H PRN Muscle Spasm Docusate Sodium 100 mg 12/06/20 17:00 12/08/20 08:37 Docusate Sodium 100 Mg Capsule PO 100 mg BID JUANIS Administration Enoxaparin Sodium 40 mg 12/07/20 09:00 12/08/20 08:38 Enoxaparin 40 Mg/0.4 Ml Syringe SUB-Q 40 mg DAILY JUANIS Administration Famotidine 20 mg 12/06/20 21:00 12/08/20 08:38 Famotidine 20 Mg Tablet PO 20 mg Q12HR JUANIS Administration Fentanyl Citrate 25 mcg 12/06/20 09:38 12/06/20 14:47 Fentanyl Citrate Inj (*Crx) 100 Mcg/2 Ml Vial IV PUSH 25 mcg Q2M PRN Administration Pain Hydromorphone HCl 0.25 mg 12/06/20 09:38 Hydromorphone Hcl Inj (*Crx) 1 Mg/Ml Syr IV PUSH Q5M PRN Pain Magnesium Hydroxide 30 ml 12/06/20 15:53 Magnesium Hydroxide Susp 30 Ml Udc PO BID PRN Constipation Morphine Sulfate 2 mg 12/06/20 15:53 Morphine Sulfate (*Crx) 2 Mg/Ml Inj IV PUSH Q3H PRN Pain Rated 7-10 Ondansetron HCl 4 mg 12/06/20 09:38 Ondansetron Inj 4 Mg/2 Ml Vial IV PUSH ONCE PRN Nausea Ondansetron HCl 4 mg 12/06/20 15:53 12/06/20 20:13 Ondansetron Inj 4 Mg/2 Ml Vial IV PUSH 4 mg Q4H PRN Administration Nausea And Vomiting Oxycodone HCl 5 mg 12/06/20 09:38 Oxycodone Hcl (*Crx) 5 Mg Tab Ir PO ONCE PRN Pain Radiology Results: ITS Impressions Chest X-Ray 12/05/20 17:25 IMPRESSION: No acute cardiopulmonary findings. Hip/Pelvis X-Ray 12/05/20 17:25 IMPRESSION: Acute right hip intertrochanteric fracture. Intraoperative X-Ray 12/06/20 13:53 IMPRESSION: 1. Near-anatomic alignment post internal fixation of an intratrochanteric fracture of the proximal right femur. 2. Curvilinear opacity projecting over the right femoral diaphysis inferior to the fixation kwadwo is most likely artifactual but would recommend repeat dedicated radiographs to exclude a nondisplaced fracture. Labs Labs: Laboratory Results - last 24 hr 12/07/20 12/08/20 12/08/20 14:41 05:21 05:23 WBC 12.9 H RBC 3.56 L Hgb 11.1 L Hct 32.5 L MCV 91.3 MCH 31.2 MCHC 34.2 RDW 14.6 H Plt Count 204 MPV 10.3 Immature Gran % (Auto) 0.3 Neut % (Auto) 39.6 L Lymph % (Auto) 49.3 H [place] % (Auto) 9.9 H Eos % (Auto) 0.4 Baso % (Auto) 0.5 Lymph # (Auto) 6.33 H [place] # (Auto) 1.3 H Eos # (Auto) 0.1 Baso # (Auto) 0.1 Abs Immat Gran (auto) 0.04 H Absolute Neuts (auto) 5.1 Absolute Nucleated RBC 0.0 Nucleated RBC % 0.0
--- NOTE | 2020-12-08 13:45 | P.PNIM_ITS ---
Progress Note: A&P Assessment and Plan (1) Closed intertrochanteric fracture of right femur: Qualifiers: Encounter type: initial encounter Fracture alignment: nondisplaced Qualified Code(s): S72.144A - Nondisplaced intertrochanteric fracture of right femur, initial encounter for closed fracture <Jo JTanja Odell, PA-C - Last Filed: 12/08/20 15:32> Code(s): S72.141A - Displaced intertrochanteric fracture of right femur, initial encounter for closed fracture <Jo JTanja Altonac, PA-C - Last Filed: 12/08/20 15:32> Status: Acute <Jo JTanja Stimdayna, PA-C - Last Filed: 12/08/20 15:32> Assessment and Plan: Patient had slipped and fallen prior to arrival and had sudden pain to her right hip and was unable to get up. Found to have a intertrochanteric fracture of her right hip. She underwent surgery on 12/06/[address] Garcia. She tolerated the procedure well and pain is well controlled. * Dunham catheter in place, waiting for D/c by Ortho. Probably do voiding trial tomorrow. * Continue pain control as needed, per ortho. * Discharge planning per Ortho. * PT OT have been ordered * Considering [facility] after discharge which I feel would be a great place for her to go prior to discharge. Insurance authorization pending * Incentive spirometer to be used postop <Jo Odell PA-C - Last Filed: 12/08/20 15:32> (2) Elevated lymphocyte count: Code(s): D72.820 - Lymphocytosis (symptomatic) <Jo JTanja Odell, PA-C - Last Filed: 12/08/20 15:32> Status: Acute <Jo JTanja Stimdayna, PA-C - Last Filed: 12/08/20 15:32> Assessment and Plan: Review of prior labs shows elevated lymphocytes and atypical lymphocytes. Could have underlying CLL vs underlying bone marrow cause. Leukocytosis improved today but lymphocyte count remaining elevated. Peripheral smear evaluated on 12/07 showed mild leukocytosis with few atypical lymphs, f avoring reactive etiology. * Continue to monitor her CBC * JAK2 testing pending <Jo Odell PA-C - Last Filed: 12/08/20 15:32> (3) Osteoporosis: Code(s): M81.0 - Age-related osteoporosis without current pathological fracture <Jo Odell PA-C - Last Filed: 12/08/20 15:32> Status: Inactive <ANGEL ButcherC - Last Filed: 12/08/20 15:32> Assessment and Plan: Continue her alendronate weekly. <ANGEL ButcherC - Last Filed: 12/08/20 15:32> (4) Normocytic anemia: Code(s): D64.9 - Anemia, unspecified <ANGEL ButcherC - Last Filed: 12/08/20 15:32> Status: Acute <ANGEL ButcherC - Last Filed: 12/08/20 15:32> Assessment and Plan: Hemoglobin level stable upon presentation with slight decline postoperatively. Likely due to blood loss from surgery. Anemia noted on peripheral smear with recommendations for follow-up iron studies, B12, and folate which I will order. <ANGEL ButcherC - Last Filed: 12/08/20 15:32> (5) Hypokalemia: Code(s): E87.6 - Hypokalemia <ANGEL ButcherC - Last Filed: 12/08/20 15:32> Status: Acute <ANGEL ButcherC - Last Filed: 12/08/20 15:32> Assessment and Plan: Potassium slightly decreased at 3.2. * Supplement with 40 mEq KCL. Monitor BMP. <ANGEL ButcherC - Last Filed: 12/08/20 15:32> Subjective Date/time seen: 12/08/20 13:45 <Jo Odell PA-C - Last Filed: 12/08/20 15:32> Interval history: Date of service: 12/08/2020 Karen Quevedo is a 75 year old female with a hist
--- NOTE | 2020-12-08 13:45 | PM.IMPN ---
Progress Note: A&P Assessment and Plan (1) Closed intertrochanteric fracture of right femur: Qualifiers: Encounter type: initial encounter Fracture alignment: nondisplaced Qualified Code(s): S72.144A - Nondisplaced intertrochanteric fracture of right femur, initial encounter for closed fracture <Jo TaylorTanja Altondayna, PA-C - Last Filed: 12/08/20 15:32> Code(s): S72.141A - Displaced intertrochanteric fracture of right femur, initial encounter for closed fracture <Jo Cristiano Dangac, PA-C - Last Filed: 12/08/20 15:32> Status: Acute <Jo Cristiano Dangac, PA-C - Last Filed: 12/08/20 15:32> Assessment and Plan: Patient had slipped and fallen prior to arrival and had sudden pain to her right hip and was unable to get up. Found to have a intertrochanteric fracture of her right hip. She underwent surgery on 12/06/[address] Garcia. She tolerated the procedure well and pain is well controlled. Dunham catheter in place, waiting for D/c by Ortho. Probably do voiding trial tomorrow. Continue pain control as needed, per ortho. Discharge planning per Ortho. PT OT have been ordered Considering [facility] after discharge which I feel would be a great place for her to go prior to discharge. Insurance authorization pending Incentive spirometer to be used postop <Jo TaylorTanja Odell, PA-C - Last Filed: 12/08/20 15:32> (2) Elevated lymphocyte count: Code(s): D72.820 - Lymphocytosis (symptomatic) <Jo JTanja Altondayna, PA-C - Last Filed: 12/08/20 15:32> Status: Acute <Jo ClaudiaTanja Altondayna, PA-C - Last Filed: 12/08/20 15:32> Assessment and Plan: Review of prior labs shows elevated lymphocytes and atypical lymphocytes. Could have underlying CLL vs underlying bone marrow cause. Leukocytosis improved today but lymphocyte count remaining elevated. Peripheral smear evaluated on 12/07 showed mild leukocytosis with few atypical lymphs, favoring reactive etiology. Continue to monitor her CBC JAK2 testing pending <Jo ClaudiaTanja Odell, PA-C - Last Filed: 12/08/20 15:32> (3) Osteoporosis: Code(s): M81.0 - Age-related osteoporosis without current pathological fracture <Jo TaylorANGEL WilliamC - Last Filed: 12/08/20 15:32> Status: Inactive <Jo DangANGEL [email or web address] - Last Filed: 12/08/20 15:32> Assessment and Plan: Continue her alendronate weekly. <Jo ANGEL RubinC - Last Filed: 12/08/20 15:32> (4) Normocytic anemia: Code(s): D64.9 - Anemia, unspecified <Jo TaylorJEAN William-C - Last Filed: 12/08/20 15:32> Status: Acute <Jo TaylorTanja AltonANGEL [email or web address] - Last Filed: 12/08/20 15:32> Assessment and Plan: Hemoglobin level stable upon presentation with slight decline postoperatively. Likely due to blood loss from surgery. Anemia noted on peripheral smear with recommendations for follow-up iron studies, B12, and folate which I will order. <Jo TaylorANGEL WilliamC - Last Filed: 12/08/20 15:32> (5) Hypokalemia: Code(s): E87.6 - Hypokalemia <Jo TaylorANGEL WilliamC - Last Filed: 12/08/20 15:32> Status: Acute <Jo TaylorJEAN William-C - Last Filed: 12/08/20 15:32> Assessment and Plan: Potassium slightly decreased at 3.2. Supplement with 40 mEq KCL. Monitor BMP. <Jo ANGEL RubinC - Last Filed: 12/08/20 15:32> Subjective Date/time seen: 12/08/20 13:45 <ANGEL ButcherC - Last Filed: 12/08/20 15:32> Interval history: Date of service: 12/08/2020 Karen Quevedo is a 75 year old female with a history of osteoporosis who is seen in follow-up for closed intertrochanteric fracture of right femur s/p surgical repair by Dr. Garcia. She reports 6/10 pain in her right hip today and states that is about 7/10 with movement. She participated in therapy today and stated that she did more reps then the day prior, and she is feeling more sore now. N
--- NOTE | 2020-12-08 18:46 | PCCCNOTE ---
From [facility]: Denied [facility] can qualify for SNF; Fast Track# [phone]; ; [facility] [phone] option 3 case# [id number]
[2020-12-09] VITALS (7 sets, daily range): BP systolic 94–118; BP diastolic 56–63; PULSE 99–126; RESP 16–20; TEMP 36.3–36.4; O2SAT 93–99
[2020-12-09] MEDS: diazePAM (*CRX) 5 MG TABLET PO (02:17)
[2020-12-09 05:52] LABS: Basophils Absolute Auto 0.1 K/mm3 (0.0-0.1); Basophils Percent Auto 0.5 % (0.2-1.2); Eosinophils Absolute Auto 0.1 K/mm3 (0-0.3); Eosinophils Percent Auto 0.7 % (0-4.4); Hematocrit 32.8 % (37.0-47.0); Hemoglobin 11.2 g/dL (12.0-15.0); Immature Granulocyte Absolute 0.05 K/mm3 (0.00-0.031); Immature Granulocyte Percent A 0.4 % (0-0.5); Lymphocytes Absolute Auto 6.77 K/mm3 (0.9-3.2); Lymphocytes Percent Auto 55.5 % (18.3-44.2); Mean Corpuscular HGB Conc 34.1 g/dl (32-36); Mean Corpuscular Hemoglobin 31.6 pg (26-34); Mean Corpuscular Volume 92.7 fl (80-100); Mean Platelet Volume 10.2 fl (7.4-10.4); Neutrophils Absolute Auto 4.3 K/mm3 (1.3-6.7); Neutrophils Percent Auto 34.9 % (45.5-73.1); Platelet Count Result 216 k/mm3 (150-375); Red Blood Count 3.54 M/mm3 (4.2-5.4); Red Cell Distribution Width 14.5 % (11.5-14.5); White Blood Count 12.2 K/mm3 (4.5-10.0)
[2020-12-09 06:02] LABS: Anion Gap 1 mmol/L (8-16); Blood Urea Nitrogen 4 mg/dL (7-17); Calcium 7.9 mg/dL (8.4-10.2); Carbon Dioxide 31 mmol/L (22-30); Chloride 104 mmol/L (98-107); Estimated CRCL calculation 83 ml/min; Estimated Glomerular Filt Rate > 60; Glucose 90 mg/dL (65-105); Potassium 3.3 mmol/L (3.4-5.0); Sodium 136 mmol/L (137-145)
[2020-12-09 08:25] LABS: Iron 31 ug/dL (37-170)
[2020-12-09 08:34] LABS: Percent Iron Saturation 12 % (20-50)
[2020-12-09 09:05] LABS: Folic Acid 4.5 ng/mL (2.76->20)
[2020-12-09] MEDS: FAMOTIDINE 20 MG TABLET PO ×2 (09:09→20:36)
[2020-12-09] MEDS: DOCUSATE SODIUM 100 MG CAPSULE PO ×2 (09:09→16:53)
[2020-12-09] MEDS: POTASSIUM CHLORIDE 20 MEQ TABLET 40 MEQ PO (09:09)
[2020-12-09] MEDS: ENOXAPARIN 40 MG/0.4 ML SYRINGE SUB-Q (09:10)
--- NOTE | 2020-12-09 09:56 | PM.PNORT ---
Progress Note: A&P Additional Plan POD 3 DOING WELL. SHE WILL BE DCd HOME TOMORROW WITH HOME HEALTH NURSING AND PT. RAAD OUT AT 2 WEEKS POSTOP. F/U IN MY OFFICE IN 6 WEEKS Subjective Subjective Date/Time Seen: 12/09/20 09:56pod 3 DOING WELL. GOOD PROGRESS WITH PT, NO CALF PAIN Exam Extrem: Other: VSS AFEBRILE DRESSING DRY NV INTACT NEG HOMANS SIGN, CALF SOFT NON TENDER Objective Data Vital Signs Vital Signs: Vital Signs - 24 hr 12/09/20 00:37 12/09/20 09:52 Temperature 36.4 C L Pulse Rate 110 H Respiratory Rate 16 Blood Pressure 104/58 L Pulse Oximetry 93 99 Intake/Output Intake/Output: Intake & Output 12/06/20 12/07/20 12/08/20 12/09/20 23:59 23:59 23:59 23:59 Intake Total 3120 3197 1820 360 Output Total 850 5450 4725 650 Balance 2270 -2253 -2905 -290 Meds/Results Medications: Active Medications Generic Name Dose Route Start Last Admin Trade Name Freq PRN Reason Stop Dose Admin Acetaminophen 650 mg 12/06/20 15:53 12/08/20 12:58 Acetaminophen 325 Mg Tablet PO 650 mg Q6H PRN Administration Pain Rated 1-3 Hydrocodone Bitart/Acetaminophen 1 tab 12/06/20 15:53 12/06/20 16:59 Hydrocodone/Acetaminophen (*Crx) 7.5-325 Mg Tablet PO 1 tab Q6H PRN Administration Pain Rated 4-6 Diazepam 5 mg 12/06/20 15:53 12/09/20 02:17 Diazepam (*Crx) 5 Mg Tablet PO 5 mg Q8H PRN Administration Muscle Spasm Docusate Sodium 100 mg 12/06/20 17:00 12/09/20 09:09 Docusate Sodium 100 Mg Capsule PO 100 mg BID JUANIS Administration Enoxaparin Sodium 40 mg 12/07/20 09:00 12/09/20 09:10 Enoxaparin 40 Mg/0.4 Ml Syringe SUB-Q 40 mg DAILY JUANIS Administration Famotidine 20 mg 12/06/20 21:00 12/09/20 09:09 Famotidine 20 Mg Tablet PO 20 mg Q12HR JUANIS Administration Fentanyl Citrate 25 mcg 12/06/20 09:38 12/06/20 14:47 Fentanyl Citrate Inj (*Crx) 100 Mcg/2 Ml Vial IV PUSH 25 mcg Q2M PRN Administration Pain Hydromorphone HCl 0.25 mg 12/06/20 09:38 Hydromorphone Hcl Inj (*Crx) 1 Mg/Ml Syr IV PUSH Q5M PRN Pain Magnesium Hydroxide 30 ml 12/06/20 15:53 Magnesium Hydroxide Susp 30 Ml Udc PO BID PRN Constipation Morphine Sulfate 2 mg 12/06/20 15:53 Morphine Sulfate (*Crx) 2 Mg/Ml Inj IV PUSH Q3H PRN Pain Rated 7-10 Ondansetron HCl 4 mg 12/06/20 09:38 Ondansetron Inj 4 Mg/2 Ml Vial IV PUSH ONCE PRN Nausea Ondansetron HCl 4 mg 12/06/20 15:53 12/06/20 20:13 Ondansetron Inj 4 Mg/2 Ml Vial IV PUSH 4 mg Q4H PRN Administration Nausea And Vomiting Oxycodone HCl 5 mg 12/06/20 09:38 Oxycodone Hcl (*Crx) 5 Mg Tab Ir PO ONCE PRN Pain Radiology Results: ITS Impressions Chest X-Ray 12/05/20 17:25 IMPRESSION: No acute cardiopulmonary findings. Hip/Pelvis X-Ray 12/05/20 17:25 IMPRESSION: Acute right hip intertrochanteric fracture. Intraoperative X-Ray 12/06/20 13:53 IMPRESSION: 1. Near-anatomic alignment post internal fixation of an intratrochanteric fracture of the proximal right femur. 2. Curvilinear opacity projecting over the right femoral diaphysis inferior to the fixation kwadwo is most likely artifactual but would recommend repeat dedicated radiographs to exclude a nondisplaced fracture. Labs Labs: Laboratory Results - last 24 hr 12/09/20 12/09/20 12/09/20 05:13 05:17 05:17 WBC 12.2 H RBC 3.54 L Hgb 11.2 L Hct 32.8 L MCV 92.7 MCH 31.6 MCHC 34.1 RDW 14.5 Plt Count 216 MPV 10.2 Immature Gran % (Auto) 0.4 Neut % (Auto) 34.9 L Lymph % (Auto) 55.5 H [place] % (Auto) 8.0 Eos % (Auto) 0.7 Baso % (Auto) 0.5 Lymph # (Auto) 6.77 H [place] # (Auto) 1.0 H Eos # (Auto) 0.1 Baso # (Auto) 0.1 Abs Immat Gran (auto) 0.05 H Absolute Neuts (auto) 4.3 Absolute Nucleated RBC 0.0 Nucleated RBC % 0.0 Sodium 136 L Potassium 3.3 L Chloride
[2020-12-09] MEDS: ACETAMINOPHEN 325 MG TABLET 650 MG PO ×2 (11:31→20:37)
--- NOTE | 2020-12-09 11:48 | PM.IMPN ---
Progress Note: A&P Assessment and Plan (1) Closed intertrochanteric fracture of right femur: Qualifiers: Encounter type: initial encounter Fracture alignment: nondisplaced Qualified Code(s): S72.144A - Nondisplaced intertrochanteric fracture of right femur, initial encounter for closed fracture Code(s): S72.141A - Displaced intertrochanteric fracture of right femur, initial encounter for closed fracture Status: Acute Assessment and Plan: Patient had slipped and fallen prior to arrival and had sudden pain to her right hip and was unable to get up. Found to have a intertrochanteric fracture of her right hip. She underwent surgery on 12/06/[address] Garcia. She tolerated the procedure well and pain is well controlled. Dunham catheter to be discontinued and start voiding trial. Continue pain control as needed, per ortho. Incentive spirometer to be used postop Plan is to DC home tomorrow with Home health. (2) Elevated lymphocyte count: Code(s): D72.820 - Lymphocytosis (symptomatic) Status: Acute Assessment and Plan: Review of prior labs shows elevated lymphocytes and atypical lymphocytes. Could have underlying CLL vs underlying bone marrow cause. Leukocytosis improved today but lymphocyte count remaining elevated. Peripheral smear evaluated on 12/07 showed mild leukocytosis with few atypical lymphs, favoring reactive etiology. Continue to monitor her CBC JAK2 testing pending (3) Osteoporosis: Code(s): M81.0 - Age-related osteoporosis without current pathological fracture Status: Inactive Assessment and Plan: Continue her alendronate weekly. (4) Normocytic anemia: Code(s): D64.9 - Anemia, unspecified Status: Acute Assessment and Plan: Hemoglobin level stable upon presentation with slight decline postoperatively. Likely due to blood loss from surgery. Anemia noted on peripheral smear with recommendations for follow-up iron studies, B12, and folate which I will order. Iron panel showing some slight iron deficiency anemia. Will start on ferrous sulfate twice daily. Will recommend a PPI upon discharge. (5) Hypokalemia: Code(s): E87.6 - Hypokalemia Status: Acute Assessment and Plan: Potassium slightly decreased at 3.3. Supplement with 40 mEq KCL. Monitor BMP. (6) Vitamin B12 deficiency: Code(s): E53.8 - Deficiency of other specified B group vitamins Status: Acute Assessment and Plan: Vitamin B12 deficiency will supplement with IM for 2 days and discharge her on 1000 mg daily of cyanocobalamin. Have her recheck as outpatient. Time Spent With Patient Time with patient: 25 - 35 minutes Subjective Date/time seen: 12/09/20 11:48 Interval history: Date of service 12/09/2020: She is doing well post-op. Having some pain to right hip but it is much improved since surgery. She has not had a bowel movement but has not been eating too much. She does not feel constipated or has a feeling that she needs a have a bowel movement at this time. Denies any nausea, vomiting or abdominal pain. She denies any fevers, chills, diarrhea, leg swelling, calf pain, lightheadedness, dizziness or any other symptoms at this time. She does feel anxious which she feels at times since she will be going home tomorrow with home health after her fall and hip surgery. She does not want at this time for her anxiety. Review of Systems Review of Systems: All systems reviewed & are unremarkable except as noted in HPI and below Exam Narrative: Exam Narrative: General: 75-year-old women sitting up in bed taking her morning medications. Appears comfortable. In no acute distress. Skin: No jaundice or cyanosis. Good skin turgor. Neck: Full range of motion. Supple. Respiratory: Lungs are clear to auscultation bilaterally. No bony chest wall tenderness. Cardiovascular: The heart has a regular rate and r
[2020-12-09] MEDS: CYANOCOBALAMIN INJ 1,000 MCG/ML VIAL 1000 MCG IM (12:58)
[2020-12-09] MEDS: FERROUS SULFATE 324 MG TABLET PO (16:53)
[2020-12-09] MEDS: PANTOPRAZOLE 40 MG TABLET PO (20:36)
[2020-12-10 02:00] VITALS: BP 105/63; PULSE 84; RESP 18; TEMP 36.1; O2SAT 96
[2020-12-10 05:36] LABS: Hematocrit 35.2 % (37.0-47.0); Hemoglobin 11.8 g/dL (12.0-15.0)
[2020-12-10 05:57] LABS: Anion Gap 1 mmol/L (8-16); Blood Urea Nitrogen 6 mg/dL (7-17); Calcium 8.3 mg/dL (8.4-10.2); Carbon Dioxide 32 mmol/L (22-30); Chloride 104 mmol/L (98-107); Estimated CRCL calculation 68 ml/min; Estimated Glomerular Filt Rate > 60; Glucose 94 mg/dL (65-105); Potassium 3.8 mmol/L (3.4-5.0); Sodium 137 mmol/L (137-145)
[2020-12-10 06:00] VITALS: BP 108/64; PULSE 73; RESP 18; TEMP 36.2; O2SAT 96
[2020-12-10] MEDS: ACETAMINOPHEN 325 MG TABLET 650 MG PO (08:45)
[2020-12-10] MEDS: ENOXAPARIN 40 MG/0.4 ML SYRINGE SUB-Q (08:46)
[2020-12-10] MEDS: FERROUS SULFATE 324 MG TABLET PO (08:46)
[2020-12-10] MEDS: PANTOPRAZOLE 40 MG TABLET PO (08:46)
[2020-12-10] MEDS: DOCUSATE SODIUM 100 MG CAPSULE PO (08:46)
[2020-12-10] MEDS: CYANOCOBALAMIN INJ 1,000 MCG/ML VIAL 1000 MCG IM (08:46)
[2020-12-10] MEDS: FAMOTIDINE 20 MG TABLET PO (08:46)
--- NOTE | 2020-12-10 09:26 | PM.PNORT ---
Progress Note: A&P Assessment and Plan (1) Closed intertrochanteric fracture of right femur: Qualifiers: Encounter type: initial encounter Fracture alignment: nondisplaced Qualified Code(s): S72.144A - Nondisplaced intertrochanteric fracture of right femur, initial encounter for closed fracture Code(s): S72.141A - Displaced intertrochanteric fracture of right femur, initial encounter for closed fracture Status: Acute Assessment and Plan: POD #4: INSERTION OF GAMMA ANDRES RIGHT HIP FRACTURE Continue PT/OT. TTWB RLE. Walker. FALL RISK. Monitor dressing. Change Daily. Continue pain control. Ice lateral hip. Continue SCDs/Incentive spirometry. DVT prophylaxis. Dispo: Home with Home Health Follow up in 6 weeks scheduled. (2) Vitamin B12 deficiency: Code(s): E53.8 - Deficiency of other specified B group vitamins Status: Acute (3) Normocytic anemia: Code(s): D64.9 - Anemia, unspecified Status: Acute (4) Elevated lymphocyte count: Code(s): D72.820 - Lymphocytosis (symptomatic) Status: Acute Subjective Subjective Date/Time Seen: 12/10/20 0850 POD #4: INSERTION OF GAMMA ANDRES RIGHT HIP FRACTURE No new complaints. Pain well controlled. Hopeful for discharge home today. Review of Systems Review of Systems: All systems reviewed & are unremarkable except as noted in HPI and below Constitutional: Constitutional: Denies chills, Denies fever(s), Denies headache(s), Denies lethargy and Reports weakness ENT: Denies headache(s) Cardiovascular: Cardiovascular: Denies chest pain, Denies diaphoresis, Denies lightheadedness, Denies palpitations, Denies dyspnea and Denies dyspnea on exertion Respiratory: Respiratory: Denies cough, Denies dyspnea and Denies dyspnea on exertion Gastrointestinal: Gastrointestinal: Denies constipation, Denies diarrhea, Denies nausea and Denies vomiting Genitourinary: Genitourinary: Reports urinary frequency, Denies dysuria and Denies urinary hesitancy Musculoskeletal: Musculoskeletal: Reports joint swelling (Right Hip ) and Reports limited range of motion (Right Hip due to recent surgery ) Neurologic: Denies headache(s) and Reports weakness Endocrine: Endocrine: Denies palpitations Exam Const: General: comfortable and no acute distress Resp: Effort & Inspection: normal respiratory effort Cardio: Rate: regular rate Rhythm: regular rhythm GI: Inspection: non-distended Skin: General skin exam: normal color Other: Incision right hip c/d/i. Surrounding tissue without redness/warmth. Mild swelling consistent with recent surgery. No drainage. Neuro: Cognition (Neuro): normal cognition Speech: normal speech Other: Strength RLE decreased +ankle dorsiflexion/plantarflexion. NV intact. Moves toes. Sensation intact to light touch. Extrem: Right lower extremity: normal to inspection, normal capillary refill and hip/thigh Details: tenderness Location: of the hip (Thigh soft ) Location: laterally and anteriorly, swelling Location: at the hip, abnormal ROM (limited consistent with recent surgery ) and other (Incision c/d/i. ); no deformity and no unusual warmth Objective Data Vital Signs Vital Signs: Vital Signs - 24 hr 12/09/20 09:52 12/09/20 12:30 12/09/20 15:22 Temperature 36.4 C L 36.4 C Pulse Rate 110 H 114 H 126 H Respiratory Rate 16 17 20 Blood Pressure 104/58 L 94/56 L Pulse Oximetry 99 98 96 12/09/20 18:57 12/09/20 22:00 12/10/20 02:00 Temperature 36.3 C L 36.3 C L 36.1 C L Pulse Rate 107 H 99 84 Respiratory Rate 16 18 18 Blood Pressure 118/63 113/63 105/63 Pulse Oximetry 97 96 96 12/10/20 06:00 Temperature 36.2 C L Pulse Rate 73 Respiratory Rate 18 Blood Pressure 108/64 Pulse Oximetry 96 Intake/Output Intake/Output: Intake & Output 12/07/20 12/08/20 12/09/20 12/10/20 23:59 23:59 23:59 23:59 Intake Total 319 1820 1400 Output Total 5463 8485 1200 046 Dbzjimx -2329 -2649 200 -250 M
--- NOTE | 2020-12-10 10:54 | PM.DS ---
DS: Admitting Diagnosis Admitting Diagnosis Admitting Diagnosis: Hip pain, fall DS: Discharge Diagnosis Discharge Diagnosis (1) Closed intertrochanteric fracture of right femur: Qualifiers: Encounter type: initial encounter Fracture alignment: nondisplaced Qualified Code(s): S72.144A - Nondisplaced intertrochanteric fracture of right femur, initial encounter for closed fracture Code(s): S72.141A - Displaced intertrochanteric fracture of right femur, initial encounter for closed fracture Status: Acute Assessment and Plan: Patient had slipped and fallen prior to arrival and had sudden pain to her right hip and was unable to get up. Found to have a intertrochanteric fracture of her right hip. She underwent surgery on 12/06/[address] Garcia. She tolerated the procedure well and pain is well controlled. Voiding well with catheter removed Continue pain control per ortho. Incentive spirometer to be used postop Plan is to DC home with Home health. (2) Elevated lymphocyte count: Code(s): D72.820 - Lymphocytosis (symptomatic) Status: Acute Assessment and Plan: Review of prior labs shows elevated lymphocytes and atypical lymphocytes. Could have underlying CLL vs underlying bone marrow cause. Leukocytosis improved today but lymphocyte count remaining elevated. Peripheral smear evaluated on 12/07 showed mild leukocytosis with few atypical lymphs, favoring reactive etiology. Continue to monitor her CBC JAK2 testing pending Will make sure these are faxed to her primary care office for further evaluation. Repeat CBC with differential in 3 weeks (3) Osteoporosis: Code(s): M81.0 - Age-related osteoporosis without current pathological fracture Status: Inactive Assessment and Plan: Continue her alendronate weekly. (4) Normocytic anemia: Code(s): D64.9 - Anemia, unspecified Status: Acute Assessment and Plan: Hemoglobin level stable upon presentation with slight decline postoperatively. Likely due to blood loss from surgery verses increased stress causing gastritis and some GI bleed. Anemia noted on peripheral smear with recommendations for follow-up iron studies, B12, and folate which I will order. Iron panel showing some slight iron deficiency anemia. Will start on ferrous sulfate twice daily. B12 deficiency as well and supplementing that Will also start PPI for 30 days for possible gastritis due to increased stress of losing her recently and now breaking her hip. She will need to follow-up with primary care for further evaluation if he recommends to continue as outpatient (5) Hypokalemia: Code(s): E87.6 - Hypokalemia Status: Acute Assessment and Plan: Potassium normal at 3.8 today. She is back to eating without any issues. (6) Vitamin B12 deficiency: Code(s): E53.8 - Deficiency of other specified B group vitamins Status: Acute Assessment and Plan: Vitamin B12 deficiency will supplement with IM for 2 days and discharge her on 1000 mg daily of cyanocobalamin. Have her recheck as outpatient in 3 weeks DS: Summary Hospital Course Reason for hospitalization: 75-year-old woman with a history of osteoporosis, who presented to the emergency room after falling at a local grocery store and breaking her right hip. She was evaluated by Dr. Garcia Orthopedic surgery who performed and insertion of gamma kwadwo to right hip fracture on 12/06/2020. She was admitted for continued therapy evaluation for acute hip fracture. While here we supplemented her potassium, found her to have iron deficiency and vitamin B12 deficiency anemia which she was treated for a will need follow-up labs as an outpatient. She also was found to have some elevated lymphocytes and ZACARIAS 2 testing was ordered and still pending results. We will send a primary care after it is resulted. The patient at this time feels c
[2020-12-13 16:14] LABS: CALR Exon 9 Mutation Not Detected (Not Detected); CSF3R Exon 14/17 Mutation Not Detected (Not Detected); Clinical Indication Not Given; JAK2 Exon 12 Mutation Not Detected (Not Detected); JAK2 V617F Mutation Not Detected (Not Detected); MPL Exon 10 Mutation Not Detected (Not Detected); Specimen Source Blood
--- NOTE | 2020-12-14 08:52 | PC.NURSE ---
ZACARIAS testing results and Peripheral smear results faxed to PCP.
--- NOTE | 2020-12-14 09:30 | PC.NURSE ---
ZACARIAS results and Peripheral blood smear faxed to PCP- Patel Cooley.
== END 2020-12-10 13:00 | disposition home health service (06) | DRG 481 ==
LOC: ANHED 16:43 → ANH2MED 20:26
PROVIDERS: Orthopaedic Surgery; Physician Assistant; Admitting Provider Internal Medicine; Emergency Provider General Practice; PCP Internal Medicine; Visit Provider Family Medicine
PROC: 0QS634Z Reposition Right Upper Femur with Internal Fixation Device, Percutaneous Approach (ICD-10-PCS; CPT 27245; principal; 2020-12-06 12:00)
DX: S72.141A Displaced intertrochanteric fracture of right femur, initial encounter for closed fracture (principal); D62 Acute posthemorrhagic anemia; Z20.822 Contact with and (suspected) exposure to COVID-19; D72.820 Lymphocytosis (symptomatic); D51.9 Vitamin B12 deficiency anemia, unspecified; D50.9 Iron deficiency anemia, unspecified; K29.70 Gastritis, unspecified, without bleeding; E87.6 Hypokalemia; M81.0 Age-related osteoporosis without current pathological fracture; Z87.891 Personal history of nicotine dependence; W01.0XXA Fall on same level from slipping, tripping and stumbling without subsequent striking against object, initial encounter
CPT/HCPCS: 36415; 71045; 73502; 80048; 80053; 81001; 81219; 81270; 81402; 81403; 81479; 82607; 82728; 82746; 83540; 83550; 83735; 85014; 85018; 85025; 85610; 85730; 88108; 93005; 96374; 96375; 97110; 97116; 97161; 97165; 97530; 97535; 99285; A9270; C1713; C9803; J0690; J1100; J1170; J1650; J2405; J2704; J3010; J3420; J7120; U0003; U0005

== ENCOUNTER 2020-12-31 11:02 | Outpatient (NON) | payer MEDICARE, SELFPAY ==
[2020-12-31 11:14] LABS: Hematocrit 42.3 % (37.0-47.0); Hemoglobin 14.1 g/dL (12.0-15.0); Mean Corpuscular HGB Conc 33.3 g/dl (32-36); Mean Corpuscular Hemoglobin 31.1 pg (26-34); Mean Corpuscular Volume 93.4 fl (80-100); Mean Platelet Volume 9.9 fl (7.4-10.4); Platelet Count Result 387 k/mm3 (150-375); Red Blood Count 4.53 M/mm3 (4.2-5.4); Red Cell Distribution Width 15.2 % (11.5-14.5); White Blood Count 9.9 K/mm3 (4.5-10.0)
[2020-12-31 13:15] LABS: Basophils Absolute Manual 0.09 K/mm3 (0.0-0.1); Basophils Percent Manual 1 % (0-1); Lymphocytes Absolute Manual 5.44 K/mm3 (1.1-4.5); Monocytes Absolute Manual 0.39 K/mm3 (0.1-0.90); Monocytes Percent Manual 4 % (3-9); Neutrophils Percent Manual 40 % (46-73); Total Cells Counted 100
[2020-12-31 13:16] LABS: Atypical Lymphocytes Present; Hypochromasia 2+ (NORMAL); Smudge Cells PRESENT
== END 2020-12-31 11:03 | disposition home or self-care (01) ==
PROVIDERS: Visit Provider Physician Assistant
DX: E53.8 Deficiency of other specified B group vitamins (principal); D64.9 Anemia, unspecified; D72.820 Lymphocytosis (symptomatic)
CPT/HCPCS: 82607; 85025

== ENCOUNTER 2021-01-24 14:03 | Outpatient (CLI) | payer MEDICARE, SELFPAY ==
[2021-01-24 14:16] LABS: Basophils Absolute Auto 0.1 K/mm3 (0.0-0.1); Basophils Percent Auto 0.5 % (0.2-1.2); Eosinophils Percent Auto 0.2 % (0-4.4); Hematocrit 43.7 % (37.0-47.0); Hemoglobin 14.5 g/dL (12.0-15.0); Immature Granulocyte Absolute 0.03 K/mm3 (0.00-0.031); Immature Granulocyte Percent A 0.2 % (0-0.5); Lymphocytes Absolute Auto 7.75 K/mm3 (0.9-3.2); Lymphocytes Percent Auto 60.4 % (18.3-44.2); Mean Corpuscular HGB Conc 33.2 g/dl (32-36); Mean Corpuscular Hemoglobin 31.1 pg (26-34); Mean Corpuscular Volume 93.8 fl (80-100); Mean Platelet Volume 9.2 fl (7.4-10.4); Monocytes Absolute Auto 0.7 K/mm3 (0.1-0.6); Monocytes Percent Auto 5.8 % (2.6-8.5); Neutrophils Absolute Auto 4.2 K/mm3 (1.3-6.7); Neutrophils Percent Auto 32.9 % (45.5-73.1); Platelet Count Result 294 k/mm3 (150-375); Red Blood Count 4.66 M/mm3 (4.2-5.4); Red Cell Distribution Width 14.6 % (11.5-14.5); White Blood Count 12.8 K/mm3 (4.5-10.0)
[2021-01-24 14:21] LABS: Blood Urea Nitrogen 6 mg/dL (8-26); Carbon Dioxide 30 mmol/L (22-30); Chloride 100 mmol/L (98-109); Estimated Glomerular Filt Rate > 60; Glucose 86 mg/dL (70-105); Potassium 3.9 mmol/L (3.5-4.9); Sodium 138 mmol/L (138-146)
[2021-01-24 14:21] LABS: Atypical Lymphocytes Present; Platelet Estimate Adequate (Adequate)
[2021-01-24 18:12] LABS: Alanine Aminotransferase 17 U/L (4-35); Albumin Level 4.4 g/dL (3.5-5.1); Alkaline Phosphatase 76 U/L (38-126); Anion Gap 6 mmol/L (8-16); Aspartate Amino Transferase 26 U/L (14-36); Bilirubin,Total 0.2 mg/dL (0.2-1.3); Blood Urea Nitrogen 8 mg/dL (7-17); Carbon Dioxide 30 mmol/L (22-30); Chloride 100 mmol/L (98-107); Estimated Glomerular Filt Rate > 60; Glucose 85 mg/dL (65-105); Lactate Dehydrogenase 405 U/L (313-618); Sodium 136 mmol/L (137-145)
[2021-01-24 18:21] LABS: Potassium 4.3 mmol/L (3.4-5.0)
== END 2021-01-24 14:04 | disposition home or self-care (01) ==
PROVIDERS: Visit Provider Internal Medicine Hematology & Oncology
DX: C91.10 Chronic lymphocytic leukemia of B-cell type not having achieved remission (principal)
CPT/HCPCS: 36415; 80048; 80053; 83615; 85025

== ENCOUNTER 2021-06-24 15:15 | Outpatient (CLI) | payer MEDICARE, SELFPAY ==
--- NOTE | ~2021-06-24 | MM_ITS ---
EXAMINATION: MM screening [facility] BI w dilshad HISTORY: Screening mammogram TECHNIQUE: Craniocaudal and mediolateral oblique 3-D tomosynthesis images were obtained and synthetic 2-D images were generated. CAD analysis was submitted and interpreted. COMPARISON: 06/20/2020, 05/12/2019 BREAST PARENCHYMAL COMPOSITION: There are scattered areas of fibroglandular density. FINDINGS: There is no evidence of suspicious mass, calcification, or architectural distortion to sugg est malignancy in either breast. There has been no suspicious interval change. IMPRESSION: 1. No mammographic evidence of malignancy. 2. Recommend routine screening mammography in one year. BI-RADS Category 1: Negative Reviewed, dictated and finalized at location A.
== END 2021-06-24 15:16 | disposition home or self-care (01) ==
LOC: ANHIMG 15:16
DX: Z12.31 Encounter for screening mammogram for malignant neoplasm of breast (principal)
CPT/HCPCS: 77063; 77067

== ENCOUNTER 2021-07-29 16:16 | Emergency (ER) | payer MEDICARE, SELFPAY ==
[2021-07-29 16:26] VITALS: BP 122/79; PULSE 110; RESP 16; TEMP 37; O2SAT 99
--- NOTE | 2021-07-29 16:52 | ED.FEMALEGU ---
HPI - Female Genitourinary General Chief complaint: Urogenital-Female Stated complaint: UTI Time Seen by Provider: 07/29/21 16:35 Source: patient and RN notes reviewed Mode of arrival: ambulatory Limitations: no limitations History of Present Illness HPI Narrative: Patient presents today complaining of urinary frequency, voiding small amounts, mild dysuria, and lower abdominal pressure. Reports symptoms have been going on for, weeks . She has tried no [id number] treatment prior to arrival. Related Data Home Medications Medication Instructions Recorded Confirmed alendronate 70 mg PO WEEKLY 12/05/20 07/29/21 ketorolac drp 07/29/21 ofloxacin drp 07/29/21 prednisolone acetate drp 07/29/21 Allergies Allergy/AdvReac Type Severity Reaction Status Date / Time No Known Allergies Allergy Verified 07/29/21 16:25 Review of Systems Review of Systems: CONSTITUTIONAL: Denies body aches, fever, chills, or sweats. EYES: Denies visual changes, redness, or discharge. ENT: Denies rhinorrhea, congestion, sore throat, or otalgia. CARDIOVASCULAR: Denies chest pain, palpitations, or edema. RESPIRATORY: Denies cough or dyspnea. GASTROINTESTINAL: Denies abdominal pain, nausea, vomiting, or diarrhea. GENITOURINARY: Denies hematuria.+ Frequency, mild dysuria SKIN: Denies rash, itching, or wounds. MUSCULOSKELETAL: Denies back pain, joint pain, or myalgia. NEUROLOGIC: Denies headache, numbness, tingling, or weakness. PSYCH: Denies depression or anxiety. [facility] Past Medical History Medical History Osteoporosis Surgical History Surgical History History of ankle surgery History of right foot and ankle surgery approximately 20 years ago. Patient is unable to describe nature of surgery. History of breast lump removal Social History Social History Social History: Karen is a very active and healthy woman who works out at the [employer] daily. She lives at home alone. Her unfortunately one month ago. Smoking status: Former smoker Alcohol intake: current Drinks per week: 14 Substance use: never Substance use type: does not use Gender identity (if verbalized by the patient): Female Spiritual care concerns: No Comments At time of signature, I have reviewed and agree with nursing past medical, surgical, social and family history unless otherwise noted. Please see nursing chart for further information. There is no relevant family history pertinent to the presenting complaint Exam Narrative: GENERAL: Well-appearing, well-nourished, and in no acute distress. HEAD: Normocephalic, atraumatic. EYES: EOMI. No redness or drainage. Conjunctivae normal. ENT: Mucous membranes pink and moist. NECK: Normal AROM. CHEST: No respiratory distress. Clear to auscultation. HEART: Regular rate and rhythm. No murmur appreciated. Normal peripheral pulses. ABDOMEN: Soft, nondistended, normal active bowel sounds.+ Mild suprapubic tenderness MUSCULOSKELETAL: No bony tenderness. EXTREMITIES: Normal range of motion. No edema. SKIN: Warm, dry, no rash. Capillary refill normal. Normal skin turgor. NEURO: No focal deficits. Alert and oriented x3. Gait steady. PSYCH: Normal affect. No signs of depression or anxiety. Course Vital Signs Vital signs: Vital Signs Temperature 98.6 F 07/29/21 16:26 Pulse Rate 110 H 07/29/21 16:26 Respiratory Rate 16 07/29/21 16:26 Blood Pressure 122/79 07/29/21 16:26 Pulse Oximetry 99 07/29/21 16:26 Temperature 98.6 F 07/29/21 16:26 Pulse Rate 110 H 07/29/21 16:26 Respiratory Rate 16 07/29/21 16:26 Blood Pressure 122/79 07/29/21 16:26 Pulse Oximetry 99 07/29/21 16:26 Reviewed. Pt has been instructed to follow up with her PCP regarding her elevated blood pressure today.
== END 2021-07-29 17:50 | disposition home or self-care (01) ==
PROVIDERS: Emergency Provider Nurse Practitioner
DX: N30.01 Acute cystitis with hematuria (principal); M81.0 Age-related osteoporosis without current pathological fracture
CPT/HCPCS: 51701; 81003; 87077; 87086; 87088; 99213; G0463

== ENCOUNTER 2022-01-20 13:46 | Outpatient (CLI) | payer MEDICARE, SELFPAY ==
--- NOTE | ~2022-01-20 | DEXA_ITS ---
Bone Density Report Name: TARA MAGALLANES Age: 76 Sex: Female Ethnicity: White Date of : 1945 Indication: postmenopausal; screening for osteoporosis; height loss; prior fracture; Referring Provider: RUSH AZAR Study: Bone densitometry was performed. Exam Date: January 20, 2022 Accession number: [id number] Bone Density: Region BMD T-score Z-score Classification AP Spine(L1-L4) 0.803 -2.2 0.2 Osteopenia Femoral Neck (Left) 0.580 -2.4 -0.3 Osteopenia Total Hip (Left) 0.681 -2.1 -0.3 Osteopenia World Health Organization criteria for BMD impression classify patients as: Normal (T-score at or above -1.0), Osteopenia (T-score between -1.0 and -2.5), or Osteoporosis (T-score at or below -2.5). 10-year Fracture Risk: FRAX not reported because: Prior hip or vertebral fracture Treated for osteoporosis Clinical Information Provided by Patient: Have had a previous hip or vertebral fracture Has had a low trauma fracture Is being treated for osteoporosis Has used the following medications: Vitamin D, Calcium Patient maximum height was 63 Menopause Age: 51 Drinks caffeinated beverages Onset of menses at age 16 Number of children 2 Impression: The patient has low bone mass, based on the Left Femoral Neck T-score. The patient has risk factors, including: previous fracture. Discussion: It is important to ask patients whether they are taking their medications and to encourage continued and appropriate compliance with their osteoporosis therapies to reduce fracture risk. It is also important to review their risk factors and encourage appropriate calcium and vitamin D intakes, exercise, fall prevention and other lifestyle measures. Follow-Up: Consider a repeat BMD and Vertebral Fracture Assessment (VFA) exam in 2 years or sooner if medically necessary, to reassess this patient's status. Reported by: KAITLYNN on 01/20/2022 2:30:00 PM. Reviewed, dictated and finalized at location A. [facility]
== END 2022-01-20 13:47 | disposition home or self-care (01) ==
DX: Z78.0 Asymptomatic menopausal state (principal); M85.88 Other specified disorders of bone density and structure, other site; M85.852 Other specified disorders of bone density and structure, left thigh
CPT/HCPCS: 77080

== ENCOUNTER 2022-08-27 14:02 | Outpatient (CLI) | payer MEDICARE, SELFPAY ==
--- NOTE | ~2022-08-27 | MM_ITS ---
EXAMINATION: MM screening [facility] BI w dilshad HISTORY: Screening mammogram TECHNIQUE: Craniocaudal and mediolateral oblique 3-D tomosynthesis images were obtained and synthetic 2-D images were generated. CAD analysis was submitted and interpreted. COMPARISON: 06/24/2021, 06/20/2020, 05/12/2019 BREAST PARENCHYMAL COMPOSITION: There are scattered areas of fibroglandular density. FINDINGS: No suspicious mass, calcification, or architectural distortion are identified in either sp ast to suggest malignancy. There has been no suspicious interval change. IMPRESSION: 1. No mammographic evidence of malignancy. 2. Recommend routine screening mammography in one year. BI-RADS Category 1: Negative Reviewed, dictated and finalized at location A. HOUSE ENGINEER
== END 2022-08-27 14:03 | disposition home or self-care (01) ==
LOC: ANHIMG 14:05
DX: Z12.31 Encounter for screening mammogram for malignant neoplasm of breast (principal)
CPT/HCPCS: 77063; 77067

== ENCOUNTER 2023-11-12 13:53 | Outpatient (CLI) | payer MEDICARE, SELFPAY ==
--- NOTE | ~2023-11-12 | MM_ITS ---
EXAMINATION: MM screening [facility] BI w dilshad HISTORY: Screening TECHNIQUE: Craniocaudal and mediolateral oblique 3-D tomosynthesis images were obtained and synthetic 2-D images were generated. CAD analysis was submitted and interpreted. COMPARISON: Comparison to multiple prior studies sequentially, with oldest reviewed study dated 05/12. BREAST PARENCHYMAL COMPOSITION: There are scattered areas of fibroglandular density. FINDINGS: There is no evidence of suspicious mass, calcification, or architectural distortion to sugg est malignancy in either breast. There has been no suspicious interval change. IMPRESSION: 1. No mammographic evidence of malignancy. 2. Recommend routine screening mammography in one year. BI-RADS Category 1: Negative Reviewed, dictated and finalized at location A. LER HAND
== END 2023-11-12 13:54 | disposition home or self-care (01) ==
DX: Z12.31 Encounter for screening mammogram for malignant neoplasm of breast (principal)
CPT/HCPCS: 77063; 77067

== ENCOUNTER 2024-04-05 08:21 | Outpatient (CLI) | payer MEDICARE, SELFPAY ==
--- NOTE | ~2024-04-05 | CT_ITS ---
Clinical Indication: CLL CT Scan of the Chest, Abdomen, and Pelvis with Contrast: Technique: Contiguous sections were acquired throughout the chest, abdomen, and pelvis after intraven ous administration of 100 cc of Omnipaque 350. Dose reduction technique was used on this scan by felicity sheth automated exposure control and iterative reconstruction technique. The dose-length product (DL P) was 520.71 mGy-cm. Findings: There is no evidence of any significant mediastinal, hilar or axillary lymphadenopathy. The mediastin al soft tissues and vascular structures appear normal. Large hiatal hernia present. There is no evidence of pleural or pericardial effusion. The lungs are clear. No pulmonary nodules or infiltrates are noted. There is diffuse hepatic steatosis. The spleen, pancreas, gallbladder, adrenals and kidneys are withi n normal limits. No evidence of aortic aneurysm. No lymphadenopathy. No bowel obstruction or bowel wall thickening. Sigmoid diverticulosis noted. Urinary bladder is unremarkable. No pelvic mass seen. No ascites. Impression: No pathologic lymphadenopathy seen. Diffuse hepatic steatosis. Large hiatal hernia. Reviewed, dictated and finalized at [facility]. Impression: No pathologic lymphadenopathy seen. Diffuse hepatic steatosis. Large hiatal hernia.
[2024-04-05 08:53] LABS: Estimated Glomerular Filt Rate > 60
== END 2024-04-05 08:22 | disposition home or self-care (01) ==
PROVIDERS: Visit Provider Internal Medicine Hematology & Oncology
DX: C91.10 Chronic lymphocytic leukemia of B-cell type not having achieved remission (principal); R10.9 Unspecified abdominal pain; K76.0 Fatty (change of) liver, not elsewhere classified; K44.9 Diaphragmatic hernia without obstruction or gangrene
CPT/HCPCS: 71260; 74177; Q9967

== ENCOUNTER 2024-07-20 13:13 | Outpatient (CLI) | payer MEDICARE, SELFPAY ==
--- NOTE | ~2024-07-20 | DEXA_ITS ---
Bone Density Report Name: TARA MAGALLANES Age: 79 Sex: Female Ethnicity: White Date of : 1945 Indication: postmenopausal; screening for osteoporosis; height loss; prior fracture; Referring Provider: UNKNOWN, UNKNOWN Study: Bone densitometry was performed. Exam Date: July 20, 2024 Accession number: [id number] Bone Density: Region BMD T-score Z-score Classification AP Spine(L1-L4) 0.799 -2.3 0.3 Osteopenia Femoral Neck (Left) 0.597 -2.3 0.0 Osteopenia Total Hip (Left) 0.743 -1.6 0.3 Osteopenia World Health Organization criteria for BMD impression classify patients as: Normal (T-score at or above -1.0), Osteopenia (T-score between -1.0 and -2.5), or Osteoporosis (T-score at or below -2.5). 10-year Fracture Risk: FRAX not reported because: Prior hip or vertebral fracture Clinical Information Provided by Patient: Have had a previous hip or vertebral fracture Has had a low trauma fracture Has used the following medications: Calcium Patient maximum height was 63 Menopause Age: 51 Does not regularly consume dairy products Drinks caffeinated beverages Onset of menses at age 17 Number of children 2 Impression: The patient has low bone mass, based on the Total Spine T-score. The patient has risk factors, including: previous fracture. Discussion: INCREASED RISK OF FRACTURE DUE TO HISTORY OF FRACTURE. The patient's previous fracture puts the patient at high risk of a future fracture. In untreated patients, the risk of osteoporotic fracture increases approximately two-fold for each 1.0 SD decrease in T-score. Low bone density is not the only risk factor for fracture; also consider factors such as patient's age, frailty or poor health, risk of falling, risk of injury, previous osteoporotic fracture, family history of osteoporosis, cigarette smoking, low body weight, etc. Not everyone with a low trauma fracture has osteoporosis; osteomalacia and other metabolic bone disorders should also be considered. Patients who have osteoporosis should be evaluated for specific diseases and conditions (secondary causes) that may cause or contribute to bone loss and fracture risk. National Osteoporosis Foundation (NOF) recommends pharmacologic intervention for patients with a prior hip or vertebral fracture regardless of BMD T-score. The patient should follow a healthful lifestyle (good nutrition with adequate calcium and vitamin D, and appropriate weight-bearing exercise). Follow-Up: Consider a repeat BMD and Vertebral Fracture Assessment (VFA) exam in 2 years or sooner if medically necessary, to reassess this patient's status. Reported by: JOANN on 07/20/2024 2:04:00 PM. Reviewed, dictated and finalized at location ATanja AVELAR
== END 2024-07-20 13:14 | disposition home or self-care (01) ==
PROVIDERS: PCP Internal Medicine Hematology & Oncology
DX: M81.0 Age-related osteoporosis without current pathological fracture (principal); M85.88 Other specified disorders of bone density and structure, other site; M85.852 Other specified disorders of bone density and structure, left thigh
CPT/HCPCS: 77080

== ENCOUNTER 2024-12-28 14:03 | Outpatient (CLI) | payer MEDICARE, SELFPAY ==
--- NOTE | ~2024-12-28 | MM_ITS ---
EXAMINATION: MM screening [facility] BI w dilshad HISTORY: Screening TECHNIQUE: Craniocaudal and mediolateral oblique 3-D tomosynthesis images were obtained and synthetic 2-D images were generated. CAD analysis was submitted and interpreted. COMPARISON: Comparison to multiple prior studies sequentially, with oldest reviewed study dated 05/12. BREAST PARENCHYMAL COMPOSITION: Not dense: There are scattered areas of fibroglandular density. FINDINGS: There is no evidence of suspicious mass, calcification, or architectural distortion to sugg est malignancy in either breast. There has been no suspicious interval change. IMPRESSION: 1. No mammographic evidence of malignancy. 2. Recommend routine screening mammography in one year. BI-RADS Category 1: Negative Reviewed, dictated and finalized at location A.
--- OUTSIDE RECORDS SUMMARY | 2024-12-28 15:45 | XMS_ITS | Encounter Summary ---
Author Organization [facility] Address [address] [facility] Attn: [place] [address] Care Team Providers Care It Risk Analyst Name Role Phone Patel Cooley MD Primary Care Provider [phone] Encounter Details Date Type Department Care Team (Late st Contact Info) Description 07/21/1995 Outpatient Historical [place], MD Jose [address] [facility] [address] [place] [address] Social History Tobacco Use Types Packs/Day Years Used Date Smoking Tobacco: Never Assessed Comments Unknown Sex and Gender Information Value Date Recorded Sex Assigned at Not on file Legal Sex Female 3:31 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 Gender Identity Not on file Sexual Orientation Not on file documented as of this encounter Plan of Treatment Upcoming Encounters Date Type Department Care Team (Late st Contact Info) Description 02/02/2025 1:00 PM CDT Office Visit [facility] Oncology and Hematology - [place] [address] [facility] [address] [place] [address] Alfonso Hidalgo MD [address] [facility] [address] [place] [address] 03/22/2025 1:30 PM CDT Office Visit [facility] Internal Medicine Medical [place] [facility] 50 [address] [facility] [address] [place] [phone] Patel Cooley MD [address] [facility] [address] [place] [address] 04/13/2025 10:00 AM CDT Office Visit [facility] Oncology and Hematology - [place] [address] [facility] [address] [place] [address] Alfonso Hidalgo MD [address] [facility] [address] [place] [address] documented as of this encounter Visit Diagnoses Not on filedocumented in this encounter Additional Health Concerns Infection Onset Date Last Indicated Resolved Time R/O COVID-19 09/04/2020 09/04/2020 09/06/2021 9:14 PM HOUSE PAINTER COVID-19 Comment:Tested positive outside of [facility] per clinic office 09/07/2020 09/07/2020 1 1:16 AM HOUSE PAINTER documented as of this encounter Care Teams It Risk Analyst Relationship Specialty Start Date End Date Patel Cooley MD [address] [place] [address] PCP - General Internal Medicine 10/13/12 documented as of this encounter
--- OUTSIDE RECORDS SUMMARY | 2024-12-28 15:45 | XMS_ITS | Clinical Summary ---
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 Gender Identity Not on file Sexual Orientation Not on file Plan of Treatment Health Maintenance Due Date Last Done Comments DEXA Bone Density 1945 Hepatitis C Virus (HCV) Screening 1945 TdaP Immunization 1945 Pneumococcal Immunization (5 0+ years) (1 of 1 - PCV) 1996 Zoster Immunization (1 of 2) 1996 Respiratory Syncytial Virus (RSV) Immunization (Adult) (1 - 1-dose 75+ series) 2021 Influenza Immunization (#1) 2024 SARS-COV-2 Immunization ( - 2023-25 season) 2024 Hepatitis B Immunization Aged Out No longer eligible based on patient's age to complete this topic Meningococcal Immunization (ACWY) Aged Out No longer eligible based on patient's age to complete this topic Rotavirus Immunization Aged Out No lo nger eligible based on patient's age to complete this topic
--- OUTSIDE RECORDS SUMMARY | 2024-12-28 15:45 | XMS_ITS | Encounter Summary ---
Author Organization [facility] Address 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 Gender Identity Not on file Sexual Orientation Not on file documented as of this encounter Plan of Treatment Upcoming Encounters Date Type Department Care Team (Late st Contact Info) Description 02/02/2025 1:00 PM CDT Office Visit [facility] Oncology and Hematology - [place] [address] [facility] [address] [place] [address] Alfonso Hidalgo MD [address] [facility] [address] [place] [address] 03/22/2025 1:30 PM CDT Office Visit [facility] Internal Medicine Medical [place] [address] [address] [facility] [address] [place] [phone] Patel Cooley MD [address] [facility] [address] [place] [address] 04/13/2025 10:00 AM CDT Office Visit [facility] Oncology and Hematology - [place] [address] [facility] [address] [place] [address] Alfonso Hidalgo MD [address] [facility] [address] [place] [address] documented as of this encounter Visit Diagnoses Diagnosis Special screening for malignant neoplasms, colon- Primary documented in this encounter Additional Health Concerns Infection Onset Date Last Indicated Resolved Time R/O COVID-19 09/04/2020 09/04/2020 09/06/2021 9:14 PM CENTRAL STERILIZATION TECHNICIAN COVID-19 Comment:Tested positive outside of [facility] per clinic office 09/07/2020 09/07/2020 1 1:16 AM CENTRAL STERILIZATION TECHNICIAN documented as of this encounter Care Teams Manager Environmental Health And Safety Relationship Specialty Start Date End Date Patel Cooley MD [address] [address] PCP - General Internal Medicine 10/13/12 documented as of this encounter
--- OUTSIDE RECORDS SUMMARY | 2024-12-28 15:45 | XMS_ITS | Encounter Summary ---
Author Organization [facility] Address [address] [place] [address] Care Team Providers Care Bulk Fluids Handler Name Role Phone Patel Cooley MD Primary Care Provider [phone] Encounter Details Date Type Department Care Team (Latest Contact Info) Description 01/25/2003 Outpatient Historical [facility] Rousseau, MD Jose [address] [facility] [address] [place] [address] OSTEOPOROSIS NOS (Primary Dx) Social History Tobacco Use Types Packs/Day Years Used Date Smoking Tobacco: Never Assessed Comments Unknown Sex and Gender Information Value Date Recorded Sex Assigned at Not on file Legal Sex Female 3:31 AM OB GYN PHYSICIAN ASSISTANT Gender Identity Not on file Sexual Orientation Not on file documented as of this encounter Plan of Treatment Upcoming Encounters Date Type Department Care Team (Late st Contact Info) Description 02/02/2025 1:00 PM CDT Office Visit [facility] Oncology and Hematology - [place] [address] [facility] [address] [place] [address] Alfonso Hidalgo MD [address] [facility] [address] [place] [address] 03/22/2025 1:30 PM CDT Office Visit [facility] Internal Medicine Medical [place] [facility] 50 [address] [facility] [address] [place] [address] Patel Cooley MD [address] [facility] [address] [place] [address] 04/13/2025 10:00 AM CDT Office Visit [facility] Oncology and Hematology - [place] [address] [facility] [address] [place] [address] Alfonso Hidalgo MD [address] [facility] [address] [place] [address] documented as of this encounter Visit Diagnoses Diagnosis Osteoporosis, unspecified- Primary documented in this encounter Additional Health Concerns Infection Onset Date Last Indicated Resolved Time R/O COVID-19 09/04/2020 09/04/2020 09/06/2021 9:14 PM OB GYN PHYSICIAN ASSISTANT COVID-19 Comment:Tested positive outside of [facility] per clinic office 09/07/2020 09/07/2020 1 1:16 AM OB GYN PHYSICIAN ASSISTANT documented as of this encounter Care Teams Bulk Fluids Handler Relationship Specialty Start Date End Date Patel Cooley MD [address] [place] [address] PCP - General Internal Medicine 10/13/12 documented as of this encounter
--- OUTSIDE RECORDS SUMMARY | 2024-12-28 15:45 | XMS_ITS | Encounter Summary ---
Author Organization [facility] Address [address] [place] [address] Care Team Providers Care Furnace Cleaner Name Role Phone Patel Cooley MD Primary Care Provider [phone] Encounter Details Date Type Department Care Team (Latest Contact Info) Description 01/20/2007 Outpatient Historical HIS [facility] BARBARA Rousseau, MD Jose [address] 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 [address] [place] [address] Alfonso Hidalgo MD [address] [facility] [address] [place] [address] 03/22/2025 1:30 PM CDT Office Visit [facility] Internal Medicine Medical [place] [facility] [address] [facility] [address] [place] [address] Patel Cooley MD [address] [facility] [address] [place] [address] 04/13/2025 10:00 AM CDT Office Visit [facility] Oncology and Hematology - [place] [address] [facility] [address] [place] [address] Alfonso Hidalgo MD [address] [facility] [address] [place] [address] documented as of this encounter Procedures Procedure Name Priority Date/Time Associated Diagnosis Comments URINALYSIS WITH REFLEX CULTURE Routine 01/20/2007 10:04 AM CDT URINALYSIS W/REFLEX MICROSCOPIC Routine 01/20/2007 10:04 AM CDT CBC WITH DIFFERENTIAL Routine 01/20/2007 9:50 AM CDT CBC WITH DIFFERENTIAL Routine 01/20/2007 9:50 AM CDT TSH Routine 01/20/2007 9:50 AM CDT LIPID PANEL Routine 01/20/2007 9:50 AM CDT COMPREHENSIVE METABOLIC PANEL Routine 01/20/2007 9:50 AM CDT documented in this encounter Results * (ABNORMAL) URINALYSIS (01/20/2007 10:04 AM CDT) COLOR UA Yellow INTERFACE SYSTEM CLARITY UA Clear Clear INTERFACE SYSTEM SPECIFIC GRAVITY UA 1.017 1.001 - 1.035 INTERFACE SYSTEM PH UA 7.5 5.0 - 8.0 INTERFACE SYSTEM LEUKOCYTE ESTERASE UA 1+(A) Negative INTERFACE SYSTEM NITRITE UA Negative Negative INTERFACE SYSTEM PROTEIN UA Trace(A) Negative INTERFACE SYSTEM GLUCOSE UA Negative Negative INTERFACE SYSTEM KETONES UA Negative Negative INTERFACE SYSTEM UROBILINOGEN UA <1 <=1 mg/dL INTE RFACE SYSTEM BILIRUBIN UA Negative Negative INTERFA CE SYSTEM BLOOD UA Negative Negative INTERFACE SYSTEM WBC UA 4 0 - 5 /HPF INTERFACE SYSTEM RBC UA <1 0 - 4 /HPF INTERFACE SYSTEM EPITHELIAL CELLS, URINE 2-5 /HPF INTERFACE SYSTEM TRANSITIONAL EPI 0-2 /HPF INT ERFACE SYSTEM 01/20/2007 10:0 4 AM CDT Jose Rousseau MD URINE ORDERABLES Edited Performing Organization Address [facility] Phone Number INTERFACE SYSTEM Refer to clinic/hospital department * URINALYSIS WITH REFLEX CULTURE (01/20/2007 10:04 AM CDT) URINE CULTURE ORDER Culture ordered INTERFACE SYSTEM Comment: Criteria for a reflex culture include one or more of the following: Abn ormal nitrite, leukocyte esterase, WBCs or RBCs. Lack of qualifying criteria does not exclude the possiblity of a urinary tract infection. Dilute urine, drug interference, etc. may decrease the sensitivity of the criteria analytes. 01/20/2007 10:0 4 AM CDT Jose Rousseau MD URINE ORDERABLES Edited Performing Organization Address [facility] Number INTERFACE SYSTEM Refer to clinic/hospital department * CBC WITH DIFFERENTIAL (01/20/2007 9:50 AM CDT) NEUTROPHILS 46 45 - 70 % INTERFAC E SYSTEM LYMPHOCYTES 44 16 - 45 % INTERFAC E SYSTEM MONOCYTES 9 3 - 13 % INTERFACE SYSTEM EOSINOPHILS 1 0 - 7 % INTERFAC E SYSTEM BASOPHILS 1 0 - 2 % INTERFACE SYSTEM NEUTROPHIL ABSOLUTE 2.48 1.90 - 7.00 K/uL INTERFACE SYSTEM LYMPHOCYTE ABSOLUTE 2.39 0.70 - 4.50 K/uL INTERFACE SYSTEM MONOCYTE ABSOLUTE 0.48 0.10 - 1.30 K/uL INTERFACE SYSTEM EOSINOPHIL ABSOLUTE 0.03 0.00 - 0.70 K/uL INTERFACE SYSTEM BASOPHILS ABSOLUTE 0.03 0.00 - 0.20 K/uL INTERFACE SYSTEM 01/20/2007 9:50 AM CDT Jose Rousseau MD HEMATOLOGY ORDERABLES Edited Performing Organization Address [facility] Phone Number INTERFACE SYSTEM Refer to clinic/hospital department * CBC WITH DIFFERENTIAL (01/20/2007 9:50 AM CDT) WBC 5.4 4.0 - 9.8 K/uL INTERFACE SYSTEM RBC 4.61 3.90 - 4.90 M/uL INTERFACE SYSTEM HEMOGLOBIN 14.6 11.8 - 14.8 g/dL INTERFACE SYSTEM HEMATOCRIT 43.4 35.5 - 44.0 % INTERFACE SYSTEM MCV 94.1 82.0 - 99.0 fL INTERFACE SYSTEM MCH 31.7 27.2 - 32.6 pg INTERFACE SYSTEM MCHC 33.6 31.5 - 35.5 % INTERFACE SYSTEM RDW 14.1 11.5 - 14.5 % INTERFACE SYSTEM RDW-STDEV 48.2 37.1 - 48.7 fL INTERFACE SYSTEM PLATELETS 228 140 - 350 K/uL INTERFACE SYSTEM MPV 11.8 9.3 - 12.4 fL INTERFACE SYSTEM 01/20/2007 9:50 AM CDT Jose Rousseau MD HEMATOLOGY ORDERABLES Edited INTERFACE SYSTEM Refer to clinic/hospital department * TSH (01/20/2007 9:50 AM CDT) Pathologist [facility] TSH 2.04 0.27 - 4.20 uU/mL INTERFACE SYSTEM 01/20/2007 9:50 AM CDT Jose Rousseau MD CHEMISTRY ORDERABLES Edited INTERFACE SYSTEM Refer to clinic/hospital department * (ABNORMAL) LIPID PANEL (01/20/2007 9:50 AM CDT) CHOLESTEROL 253(H) 100 - 199 mg/dL INTERFACE SYSTEM TRIGLYCERIDE 80 10 - 149 mg/dL INTERFACE SYSTEM HDL 103(H) 40 - 59 mg/dL INTERFACE SYSTEM CHOL/HDL RATIO 2.5 2.0 - 5.0 INTER FACE SYSTEM LDL CALCULATED 134(H) <=99 mg/dL INTERFACE SYSTEM LIPID PANEL COMMENT See Below INTERFACE SYSTEM Comment: The adult ATP and pediatric NCEP classifications for lipids are available on the [facility] Intranet at: [email or web address] Select: Lab Policies and Procedures Select: Reference Ranges - Lipids 01/20/2007 9:50 AM CDT Jose Rousseau MD CHEMISTRY ORDERABLES Edited INTERFACE SYSTEM Refer to clinic/hospital department * COMPREHENSIVE METABOLIC PANEL (01/20/2007 9:50 AM CDT) GLUCOSE 93 65 - 99 mg/dL INTERFACE SYSTEM CREATININE 0.64 0.51 - 0.95 mg/dL INTERFACE SYSTEM CALCIUM 9.1 8.4 - 10.2 mg/dL INTERFACE SYSTEM ALKALINE PHOSPHATASE 92 35 - 104 U/L INTERFACE SYSTEM AST 22 12 - 32 U/L INTERFACE SYSTEM ALT 19 0 - 31 U/L INTERFACE SYSTEM TOTAL PROTEIN 7.2 6.3 - 8.6 g/dL INTERFACE SYSTEM ALBUMIN 4.4 3.4 - 4.8 g/dL INTERFACE SYSTEM BILIRUBIN TOTAL 0.4 0.2 - 1.0 mg/dL INTERFACE SYSTEM BUN 12 6 - 20 mg/dL INTERFACE SYSTEM SODIUM 143 135 - 145 mmol/L INTERFACE SYSTEM POTASSIUM 4.6 3.5 - 4.9 mmol/L INTERFACE SYSTEM CHLORIDE 106 96 - 108 mmol/L INTERFACE SYSTEM CO2 27 22 - 30 mmol/L INTERFACE SYSTEM GFR, >60 >=60 mL/min/1.7 sq meter INTERFACE SYSTEM GFR >60 >=60 mL/min/1.7 sq meter INTERFACE SYSTEM Comment: Estimated GFR rate interpretative information for both Americans and non- Americans is available on the [facility] Intranet at: [email or web address] Select: Lab Policies and Procedures Select: Reference Ranges - GFR 01/20/2007 9:50 AM CDT Jose Rousseau MD CHEMISTRY ORDERABLES Edited INTERFACE SYSTEM Refer to clinic/hospital department documented in this encounter Visit Diagnoses Diagnosis Edema- Primary documented in this encounter Additional Health Concerns Infection Onset Date Last Indicated Resolved Time R/O COVID-19 09/04/2020 09/04/2020 09/06/2021 9:14 PM SPORTS FITNESS AND WELLNESS DIRECTOR COVID-19 Comment:Tested positive outside of [facility] per clinic office 09/07/2020 09/07/2020 1 1:16 AM SPORTS FITNESS AND WELLNESS DIRECTOR documented as of this encounter Care Teams Furnace Cleaner Relationship Specialty Start Date End Date Patel Cooley MD [address] [place] [id number] PCP - General Internal Medicine 10/13/12 documented as of this encounter
--- OUTSIDE RECORDS SUMMARY | 2024-12-28 15:45 | XMS_ITS | Encounter Summary ---
Author Organization [facility] Address [address] [place] [address] Care Team Providers Care Materials Associate Name Role Phone Patel Cooley MD Primary Care Provider [phone] Encounter Details Date Type Department Care Team (Latest Contact Info) Description 10/29/1998 Outpatient Historical HIS [facility] BARBARA Rousseau, MD Jose [address] [facility] [address] [place] [address] Pain in joint, site unspecified (Primary Dx) Social History Tobacco Use Types Packs/Day Years Used Date Smoking Tobacco: Never Assessed Comments Unknown Sex and Gender Information Value Date Recorded Sex Assigned at Not on file Legal Sex Female 3:31 AM POLICE SURGEON Gender Identity Not on file Sexual Orientation Not on file documented as of this encounter Plan of Treatment Upcoming Encounters Date Type Department Care Team (Late st Contact Info) Description 02/02/2025 1:00 PM CDT Office Visit [facility] Oncology and Hematology - [place] [address] [place] [address] [facility] 200 [place] [address] Alfonso Hidalgo MD [address] [facility] [address] [place] [address] 03/22/2025 1:30 PM CDT Office Visit [facility] Internal Medicine Medical [place] [facility] 50 [address] [facility] [address] [place] [phone] Patel Cooley MD [address] [facility] [address] [place] [address] 04/13/2025 10:00 AM CDT Office Visit [facility] Oncology and Hematology - [place] [address] [facility] 200 [place] [address] Alfonso Hidalgo MD [address] [facility] [address] [place] [address] documented as of this encounter Visit Diagnoses Diagnosis Pain in joint, site unspecified- Primary documented in this encounter Additional Health Concerns Infection Onset Date Last Indicated Resolved Time R/O COVID-19 09/04/2020 09/04/2020 09/06/2021 9:14 PM POLICE SURGEON COVID-19 Comment:Tested positive outside of [facility] per clinic office 09/07/2020 09/07/2020 1:16 AM POLICE SURGEON documented as of this encounter Care Teams Materials Associate Relationship Specialty Start Date End Date Patel Cooley MD [address] [place] [phone] PCP - General Internal Medicine 10/13/12 documented as of this encounter
--- OUTSIDE RECORDS SUMMARY | 2024-12-28 15:45 | XMS_ITS | Encounter Summary ---
Author Organization [facility] Address [address] [place] [address] Care Team Providers Care Lathe Operator Contact Lens Name Role Phone Patel Cooley MD Primary Care Provider [phone] Encounter Details Date Type Department Care Team (Latest Contact Info) Description 05/01/2008 Outpatient Historical HIS [facility] BARBARA Rousseau, MD Jose [address] [facility] [address] [place] [address] Routine General Medical Examination at a Health Care Facility Social History Tobacco Use Types Packs/Day Years Used Date Smoking Tobacco: Never Assessed Comments Unknown Sex and Gender Information Value Date Recorded Sex Assigned at Not on file Legal Sex Female 3:31 AM KILN TENDER Gender Identity Not on file Sexual Orientation Not on file documented as of this encounter Plan of Treatment Upcoming Encounters Date Type Department Care Team (Late st Contact Info) Description 02/02/2025 1:00 PM CDT Office Visit [facility] Oncology and Hematology - [place] [address] [facility] 200 [place] [address] Alfonso Hidalgo MD [address] [facility] [address] [place] [address] 03/22/2025 1:30 PM CDT Office Visit [facility] Internal Medicine Medical [place] [facility] 50 [address] [facility] [address] [address] Patel Cooley MD [address] [facility] [address] [place] [address] 04/13/2025 10:00 AM CDT Office Visit [facility] Oncology and Hematology - [place] [address] [facility] [address] [place] [address] Alfonso Hidalgo MD [address] [facility] [address] [place] [address] documented as of this encounter Procedures Procedure Name Priority Date/Time Associated Diagnosis Comments CBC WITH DIFFERENTIAL Routine 05/01/2008 10:58 AM CDT URINALYSIS W/REFLEX MICROSCOPIC Routine 05/01/2008 10:58 AM CDT TSH Routine 05/01/2008 10:58 AM CDT LIPID PANEL Routine 05/01/2008 10:58 AM CDT COMPREHENSIVE METABOLIC PANEL Routine 05/01/2008 10:58 AM CDT documented in this encounter Results * COMPREHENSIVE METABOLIC PANEL (05/01/2008 10:58 AM CDT) POTASSIUM 4.1 3.5 - 4.9 mmol/L [facility] TOTAL PROTEIN 7.3 6.3 - 8.6 g/dL [facility] GLUCOSE 94 65 - 99 mg/dL [facility] AST 24 12 - 32 U/L [facility] BUN 15 6 - 20 mg/dL [facility] CALCIUM 9.8 8.6 - 10.2 mg/dL [facility] Comment:Note new reference r enio effective 04/20/08 ALBUMIN 4.7 3.4 - 4.8 g/dL [facility] CHLORIDE 102 96 - 108 mmol/L [facility] CREATININE 0.67 0.51 - 0.95 mg/dL [facility] ALT 21 0 - 31 U/L [facility] SODIUM 141 135 - 145 mmol/L [facility] ALKALINE PHOSPHATASE 81 35 - 104 U/L [facility] CO2 25 22 - 30 mmol/L [facility] BILIRUBIN TOTAL 0.5 0.2 - 1.0 mg/dL [facility] GFR, >60 >=60 mL/min/1.7 sq meter [facility] GFR >60 >=60 mL/min/1.7 sq meter [facility] Comment: Modification of Diet in Renal Disease (MDRD) study formula. Estimated GFR rate interpretative information for both Americans and non- Americans is available on the [facility] Intranet at: [email or web address] Select: Lab Policies and Procedures Select: Reference Ranges - GFR Blood specimen (specimen) 05/01/2008 10:58 AM CDT 05/01/2008 11:11 AM CDT Jose Rousseau MD CHEMISTRY ORDERABLES Edited [facility] CLIA# [id number] [address] [place] [address] * URINALYSIS (05/01/2008 10:58 AM CDT) PH UA 7.0 5.0 - 8.0 [facility] KETONES UA Negative Negative [facility] CLARITY UA Clear Clear [facility] BILIRUBIN UA Negative Negative [facility] PROTEIN UA Negative Negative [facility] LEUKOCYTE ESTERASE UA Negative Negative [facility] SPECIFIC GRAVITY UA 1.004 1.001 - 1.035 [facility] GLUCOSE UA Negative Negative [facility] BLOOD UA Negative Negative [facility] COLOR UA Pale Yellow [facility] NITRITE UA Negative Negative [facility] UROBILINOGEN UA <1 <=1 mg/dL [facility] Urine specimen (specimen) 05/01/2008 10:58 AM CDT 05/01/2008 12:20 PM CDT Jose Rousseau MD URINE ORDERABLES Final Result Performing Organization Address [facility] Co de Phone Number [facility] CLIA# [id number] [address] [place] [address] * TSH (05/01/2008 10:58 AM CDT) Pathologist [facility] TSH 2.36 0.27 - 4.20 uU/mL [facility] Blood specimen (specimen) 05/01/2008 10:58 AM CDT 05/01/2008 11:11 AM CDT Jose Rousseau MD CHEMISTRY ORDERABLES Final Resul t Performing Organization Address [facility] Co de Phone Number [facility] CLIA# [id number] [address] [place] [address] * (ABNORMAL) CBC WITH DIFFERENTIAL (05/01/2008 10:58 AM CDT) MPV 11.4 9.3 - 12.4 fL [facility] HEMATOCRIT 43.6 35.5 - 44.0 % [facility] RDW-STDEV 47.5 37.1 - 48.7 fL [facility] RBC 4.55 3.90 - 4.90 M/uL [facility] MCHC 33.3 31.5 - 35.5 % [facility] MCV 95.8 82.0 - 99.0 fL [facility] PLATELETS 251 140 - 350 K/uL [facility] HEMOGLOBIN 14.5 11.8 - 14.8 g/dL [facility] RDW 13.8 11.5 - 14.5 % [facility] WBC 6.3 4.0 - 9.8 K/uL [facility] MCH 31.9 27.2 - 32.6 pg [facility] BASOPHILS 1 0 - 2 % [facility] BASOPHILS ABSOLUTE 0.03 0.00 - 0.20 K/uL [facility] MONOCYTES 9 3 - 13 % [facility] MONOCYTE ABSOLUTE 0.54 0.10 - 1.30 K/uL [facility] NEUTROPHILS 39(L) 45 - 70 % [facility] NEUTROPHIL ABSOLUTE 2.48 1.90 - 7.00 K/uL [facility] EOSINOPHILS 1 0 - 7 % [facility] EOSINOPHIL ABSOLUTE 0.04 0.00 - 0.70 K/uL [facility] LYMPHOCYTES 51(H) 16 - 45 % [facility] LYMPHOCYTE ABSOLUTE 3.20 0.70 - 4.50 K/uL [facility] Blood specimen (specimen) 05/01/2008 10:58 AM CDT 05/01/2008 11:10 AM CDT us Jose Rousseau MD HEMATOLOGY ORDERABLES Edited INTERFACE SYSTEM Refer to clinic/hospital department [facility] CLIA# [id number] [address] [place] [address] * (ABNORMAL) LIPID PANEL (05/01/2008 10:58 AM CDT) CHOL/HDL RATIO 2.7 2.0 - 5.0 [facility] TRIGLYCERIDE 77 10 - 149 mg/dL [facility] HDL 97(H) 40 - 59 mg/dL [facility] CHOLESTEROL 266(H) 100 - 199 mg/dL [facility] LDL CALCULATED 154(H) <=99 mg/dL [facility] LIPID PANEL COMMENT See Below [facility] Comment: The adult ATP and pediatric NCEP classifications for lipids are available on the [facility] Intranet at: [email or web address] Select: Lab Policies and Procedures,Current Select: Lipid Panel Interpretation Blood specimen (specimen) 05/01/2008 10:58 AM CDT 05/01/2008 11:11 AM CDT us Jose Rousseau MD CHEMISTRY ORDERABLES Edited [facility] CLIA# [id number] [address] [place] [address] documented in this encounter Visit Diagnoses Diagnosis Routine general medical examination at a health care facility documented in this encounter Additional Health Concerns Infection Onset Date Last Indicated Resolved Time R/O COVID-19 09/04/2020 09/04/2020 09/06/2021 9:14 PM KILN TENDER COVID-19 Comment:Tested positive outside of [facility] per clinic office 09/07/2020 09/07/2020 1 1:16 AM KILN TENDER documented as of this encounter Care Teams Lathe Operator Contact Lens Relationship Specialty Start Date End Date Patel Cooley MD [address] [facility] [address] [place] [phone] PCP - General Internal Medicine 10/13/12 documented as of this encounter
--- OUTSIDE RECORDS SUMMARY | 2024-12-28 15:45 | XMS_ITS | Encounter Summary ---
Author Organization [facility] Address [address] [place] [address] Care Team Providers Care District Court Bailiff Name Role Phone Patel Cooley MD Primary Care Provider [phone] Encounter Details Date Type Department Care Team (Latest Contact Info) Description 03/04/2005 Outpatient Historical HIS [facility] Rousseau, MD Jose [address] [facility] [address] [place] [address] ALLERGIC RHINITIS NOS (Primary Dx) Social History Tobacco Use Types Packs/Day Years Used Date Smoking Tobacco: Never Assessed Comments Unknown Sex and Gender Information Value Date Recorded Sex Assigned at Not on file Legal Sex Female 3:31 AM MEDICAL STAFF DIRECTOR Gender Identity Not on file Sexual Orientation Not on file documented as of this encounter Plan of Treatment Upcoming Encounters Date Type Department Care Team (Late st Contact Info) Description 02/02/2025 1:00 PM CDT Office Visit [facility] Oncology and Hematology - [place] [address] [facility] [address] [place] [address] Alfonso Hidalgo MD [address] [facility] [address] [place] [phone] 03/22/2025 1:30 PM CDT Office Visit [facility] Internal Medicine Medical [place] [facility] 50 [address] [facility] [address] [phone] Patel Cooley MD [address] [facility] [address] [place] [address] 04/13/2025 10:00 AM CDT Office Visit [facility] Oncology and Hematology - [place] [address] [facility] [address] [place] [address] Alfonso Hidalgo MD [address] [facility] [address] [place] [address] documented as of this encounter Procedures Procedure Name Priority Date/Time Associated Diagnosis Comments URINALYSIS W/REFLEX MICROSCOPIC Routine 03/04/2005 11:42 AM CDT CBC WITH DIFFERENTIAL Routine 03/04/2005 11:34 AM CDT CBC WITH DIFFERENTIAL Routine 03/04/2005 11:34 AM CDT TSH Routine 03/04/2005 11:34 AM CDT LIPID PANEL Routine 03/04/2005 11:34 AM CDT COMPREHENSIVE METABOLIC PANEL Routine 03/04/2005 11:34 AM CDT documented in this encounter Results * URINALYSIS (03/04/2005 11:42 AM CDT) COLOR UA Colorless INTERFACE SYSTEM CLARITY UA Clear Clear INTERFACE SYSTEM SPECIFIC GRAVITY UA 1.005 1.001 - 1.035 INTERFACE SYSTEM PH UA 7.0 5.0 - 8.0 INTERFACE SYSTEM LEUKOCYTE ESTERASE UA Negative Negative INTERFACE SYSTEM NITRITE UA Negative Negative INTERFACE SYSTEM PROTEIN UA Negative Negative INTERFACE SYSTEM GLUCOSE UA Negative Negative INTERFACE SYSTEM KETONES UA Negative Negative INTERFACE SYSTEM UROBILINOGEN UA <1 <1 EU INTE RFACE SYSTEM BILIRUBIN UA Negative Negative INTERFA CE SYSTEM BLOOD UA Negative Negative INTERFACE SYSTEM 03/04/2005 11:4 2 AM CDT Jose Rousseau MD URINE ORDERABLES Final Result INTERFACE SYSTEM Refer to clinic/hospital department * (ABNORMAL) CBC WITH DIFFERENTIAL (03/04/2005 11:34 AM CDT) NEUTROPHILS 44(L) 45 - 70 % INTERFAC E SYSTEM LYMPHOCYTES 46(H) 16 - 45 % INTERFAC E SYSTEM MONOCYTES 9 3 - 13 % INTERFACE SYSTEM EOSINOPHILS 1 0 - 7 % INTERFAC E SYSTEM BASOPHILS 1 0 - 2 % INTERFACE SYSTEM NEUTROPHIL ABSOLUTE 2.27 1.90 - 7.00 K/uL INTERFACE SYSTEM LYMPHOCYTE ABSOLUTE 2.37 0.70 - 4.50 K/uL INTERFACE SYSTEM MONOCYTE ABSOLUTE 0.45 0.10 - 1.30 K/uL INTERFACE SYSTEM EOSINOPHIL ABSOLUTE 0.03 0.00 - 0.70 K/uL INTERFACE SYSTEM BASOPHILS ABSOLUTE 0.05 0.00 - 0.20 K/uL INTERFACE SYSTEM 03/04/2005 11:3 4 AM CDT Jose Rousseau MD HEMATOLOGY ORDERABLES Final Resu lt Performing Organization Address [facility] de Phone Number INTERFACE SYSTEM Refer to clinic/hospital department * (ABNORMAL) CBC WITH DIFFERENTIAL (03/04/2005 11:34 AM CDT) WBC 5.2 4.0 - 9.8 K/uL INTERFACE SYSTEM RBC 4.58 3.90 - 4.90 M/uL INTERFACE SYSTEM HEMOGLOBIN 14.7 11.8 - 14.8 g/dL INTERFACE SYSTEM HEMATOCRIT 44.2(H) 35.5 - 44.0 % INTERFACE SYSTEM MCV 96.5 82.0 - 99.0 fL INTERFACE SYSTEM MCH 32.1 27.2 - 32.6 pg INTERFACE SYSTEM MCHC 33.3 31.5 - 35.5 % INTERFACE SYSTEM RDW 14.2 11.5 - 14.5 % INTERFACE SYSTEM RDW-STDEV 50.5(H) 37.1 - 48.7 fL INTERFACE SYSTEM PLATELETS 246 140 - 350 K/uL INTERFACE SYSTEM MPV 11.4 9.3 - 12.4 fL INTERFACE SYSTEM 03/04/2005 11:3 4 AM CDT Jose Rousseau MD HEMATOLOGY ORDERABLES Final Resu lt Performing Organization Address City/[facility] Co de Phone Number INTERFACE SYSTEM Refer to clinic/hospital department * TSH (03/04/2005 11:34 AM CDT) TSH 1.68 0.27 - 4.20 uU/mL INTERFACE SYSTEM 03/04/2005 11:3 4 AM CDT Jose Rousseau MD CHEMISTRY ORDERABLES Final Resul t INTERFACE SYSTEM Refer to clinic/hospital department * (ABNORMAL) LIPID PANEL (03/04/2005 11:34 AM CDT) CHOLESTEROL 279(H) 100 - 199 mg/dL INTERFACE SYSTEM TRIGLYCERIDE 79 10 - 149 mg/dL INTERFACE SYSTEM HDL 118(H) 40 - 59 mg/dL INTERFACE SYSTEM LDL CALCULATED 145(H) <=99 mg/dL INTERFACE SYSTEM CHOL/HDL RATIO 2.4 2.0 - 5.0 INTER FACE SYSTEM Comment:See interpretive olga a section for risk classifications. LIPID PANEL COMMENT See below INTERFACE SYSTEM Comment: Adult ATP III Classifications: Cholesterol (mg/dL) Triglyceride (mg/dL) Desirable <200 Normal <150 Borderline 200 - 239 Borderline High 150 - 199 High >=240 High 200 - 499 Very High >=500 HDL Cholesterol (mg/dL) LDL (mg/dL) Low (increased risk) <40 Optimal <100 High (reduced risk) >=60 Near or above optimal 100 - 129 Borderline 130 - 159 High 160 - 189 Very High >=190 LDL calculation is not accurate if Triglycerides are greater than 400 mg /dL Pediatric NCEP Classifications: Cholesterol(<20 years),(mg/dL) Triglyceride Desirable <170 Pediatric classification Borderline 170 - 199 not defined. High >=200 HDL (<5 years) LDL (mg/dL) No Reference Range Established Desirable <110 Borderline 110 - 129 High >=130 03/04/2005 11:3 4 AM CDT Jose Rousseau MD CHEMISTRY ORDERABLES Final Resul t INTERFACE SYSTEM Refer to clinic/hospital department * COMPREHENSIVE METABOLIC PANEL (03/04/2005 11:34 AM CDT) GLUCOSE 93 65 - 109 mg/dL INTERFACE SYSTEM CREATININE 0.7 0.4 - 1.2 mg/dL INTERFACE SYSTEM CALCIUM 9.9 8.6 - 10.2 mg/dL INTERFACE SYSTEM AST 23 12 - 32 U/L INTERFACE SYSTEM ALKALINE PHOSPHATASE 91 35 - 104 U/L INTERFACE SYSTEM BUN 11 6 - 20 mg/dL INTERFACE SYSTEM BILIRUBIN TOTAL 0.5 0.2 - 1.0 mg/dL INTERFACE SYSTEM ALBUMIN 4.8 3.4 - 4.8 g/dL INTERFACE SYSTEM TOTAL PROTEIN 7.5 6.3 - 8.6 g/dL INTERFACE SYSTEM ALT 23 0 - 31 U/L INTERFACE SYSTEM SODIUM 141 135 - 145 mmol/L INTERFACE SYSTEM POTASSIUM 4.1 3.5 - 4.9 mmol/L INTERFACE SYSTEM CHLORIDE 104 96 - 108 mmol/L INTERFACE SYSTEM CO2 26 22 - 30 mmol/L INTERFACE SYSTEM 03/04/2005 11:3 4 AM CDT us Jose Rousseau MD CHEMISTRY ORDERABLES Final Resul t INTERFACE SYSTEM Refer to clinic/hospital department documented in this encounter Visit Diagnoses Diagnosis Allergic rhinitis, cause unspecified- Primary documented in this encounter Additional Health Concerns Infection Onset Date Last Indicated Resolved Time R/O COVID-19 09/04/2020 09/04/2020 09/06/2021 9:14 PM MEDICAL STAFF DIRECTOR COVID-19 Comment:Tested positive outside of [facility] system per clinic office 09/07/2020 09/07/2020 1 1:16 AM MEDICAL STAFF DIRECTOR documented as of this encounter Care Teams District Court Bailiff Relationship Specialty Start Date End Date Patel Cooley MD [address] [address] PCP - General Internal Medicine 10/13/12 documented as of this encounter
--- OUTSIDE RECORDS SUMMARY | 2024-12-28 15:45 | XMS_ITS | Encounter Summary ---
Author Organization [facility] Address [address] [place] [address] Care Team Providers Care Record Librarian Name Role Phone Patel Cooley MD Primary Care Provider [phone] Encounter Details Date Type Department Care Team (Latest Contact Info) Description 05/18/2009 Outpatient Historical HIS [facility] Rousseau, MD Jose [address] [facility] [address] [place] [address] Routine General Medical Examination at a Health Care Facility Social History Tobacco Use Types Packs/Day Years Used Date Smoking Tobacco: Never Alcohol Use Standard Drinks/Week Comments Yes 0 (1 standard drink = 0.6 oz pur e alcohol) Comments No Sex and Gender Information Value Date Recorded Sex Assigned at Not on file Legal Sex Female 3:31 AM GRAIN INSPECTOR Gender Identity Not on file Sexual Orientation Not on file documented as of this encounter Plan of Treatment Upcoming Encounters Date Type Department Care Team (Late st Contact Info) Description 02/02/2025 1:00 PM CDT Office Visit [facility] Oncology and Hematology - [place] [address] [facility] [address] [place] [address] Alfonso Hidalgo MD [address] [facility] [address] [place] [address] 03/22/2025 1:30 PM CDT Office Visit [facility] Internal Medicine Medical [place] [facility] [address] [address] Patel Cooley MD [address] [facility] [address] [place] [address] 04/13/2025 10:00 AM CDT Office Visit [facility] Oncology and Hematology - [place] [address] [facility] [place] [address] [place] [address] Alfonso Hidalgo MD [address] [facility] [address] [place] [address] documented as of this encounter Visit Diagnoses Diagnosis Routine general medical examination at a health care facility documented in this encounter Additional Health Concerns Infection Onset Date Last Indicated Resolved Time R/O COVID-19 09/04/2020 09/04/2020 09/06/2021 9:14 PM GRAIN INSPECTOR COVID-19 Comment:Tested positive outside of [facility] per clinic office 09/07/2020 09/07/2020 1 1:16 AM GRAIN INSPECTOR documented as of this encounter Care Teams Record Librarian Relationship Specialty Start Date End Date Patel Cooley MD [address] [facility] [address] [place] [address] PCP - General Internal Medicine 10/13/12 documented as of this encounter
--- OUTSIDE RECORDS SUMMARY | 2024-12-28 15:45 | XMS_ITS | Clinical Summary ---
Author Organization [facility] Address [address] [place] [address] Care Team Providers Care Outside Rigger Name Role Phone Unavailable Primary Care Provider Unavailabl e Social History Tobacco Use Types Packs/Day Years Used Date Smoking Tobacco: Never Assessed Comments Unknown Sex and Gender Information Value Date Recorded Sex Assigned at Not on file Legal Sex Female 7:35 PM CDT Gender Identity Not on file Sexual Orientation Not on file Plan of Treatment Health Maintenance Due Date Last Done Comments Hepatitis C 1963 DTaP, Tdap and Td Vaccines ( 1 - Tdap) 1965 Zoster Vaccines (1 of 2) 1996 Dexa Scan (General) 2011 Pneumococcal Vaccine: 65+ Ye ars (1 of 1 - PCV) 2011 RSV Immunization or 60+ Years (1 - 1-dose 75+ series) 2021 COVID-19 Vaccine ( - 2023-2 5 season) 2024 Meningococcal B Vaccine Aged Out No l onger eligible based on patient's age to complete this topic Meningococcal Vaccine Aged Out No yg karen eligible based on patient's age to complete this topic RSV Immunizations Under 20 Months Aged Out No longer eligible based on patient's age to complete this topic
--- OUTSIDE RECORDS SUMMARY | 2024-12-28 15:45 | XMS_ITS | Clinical Summary ---
Author Organization [facility] Address [address] [place] [address] Phone Care Team Providers Care National Insurance Officer Name Role Phone Patel Cooley MD Primary Care Provider [phone] Allergies No known active allergies Medications Cholecalciferol, Vitamin D3, (VITAMIN D3) 1,000 unit Oral Tab Take 1 Tab by mouth daily. 30 Tab 11 10/18/2012 Active acetaminophen (TYLENOL) 500 mg tablet Take 500 mg by mouth every 6 hours as needed. Active cyanocobalamin 1,000 mcg Tablet Take 1,000 mcg by mouth daily. Active Calcium-Cholecal ciferol, D3, (Calcium 500 + D) 500 mg-10 mcg (400 unit) Tablet Take 1 Tablet by mouth 2 times daily. 30 Tablet 11 01/06/2022 Active Active Problems Patient Care Coordination No te Formatting of this note migh t be different from the original. 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 Hidalgo - Oncology Consent to speak to Ain Skinner (Daughter) Abigail Al (daughter) Problem Noted Date Diagnosed Date History of colon polyps 02/19/2014 Vitamin D deficiency 10/18/2012 Overview (10/18/2012): Started on supplement in September,. 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 Stage 0 Early 2014: Negative CT chest/abdomen/pelvis. 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 05/18/2009 Overview (01/27/2022): DEXA 12/21/14: Spine -1.8; Left Femur -1.9, Right Femur -2.0 FRAX; major 11.4%, Hip 2.0% DEXA 02/24/17: Spine -1.9; Left Femur -2.0, Right Femur -2.2 DEXA 05/24/19: Spine -2.3; Left Femur -2.2, Right Femur -2.1 FRAX major 14% Hip 3.5% - Started on Fosamax - 2020: Hip fracture - Switched to Prolia DEXA 01/20/22: Spine -2.2; Left Femur -2.4 - Went back on Reclast (due to insurance issue?) DJD (degenerative joint disease) of knee 009 Encounters Date Type Department Care Team Description 11/08/2024 External Device Data STL ABSTRACTION Provider, Abstract 10/12/2024 External Device Data STL ABSTRACTION Provider, Abstract 10/11/2024 External Device Data ST[place] ABSTRACTION Provider, Abstract 10/10/2024 Telephone [facility] Internal Medicine [facility] 50 [address] [facility] [address] [address] Patel Cooley MD Wants Appointment from Last 3 Months Immunizations Immunization Administration Dates Next Due (ADACEL/BOOSTRIX)(10 YR UP) TDAP VACCINE, 0.5ML, IM 01/20/2007 (PFIZER)(12 YR UP) COVID-19 VACCINE - EMERGENCY USE AUTHORIZATION, MRNA, [id number](PF) 30 MCG/0.3 ML IM SUSP 08/20/2021,11/16/2020,10/18/2020 (PNEUMOVAX 23)(50 YRS UP) PN EUMOCOCCAL POLYSACCHARIDE (PPV23) 0.5 ML, IM 01/06/2022,06/26/2011 (PREVNAR 13)(6 WKS UP) PNEUM OCOCCAL CONJUGATE (PCV13) 0.5 ML, IM 12/21/2014 INFLUENZA VACCINE HIGH DOSE QUADRIVALENT 65 YR UP PF IM 06/05/2020 Influenza Seasonal Unspecifi ed Formulation IM 07/14/2019,06/20/2014,06/22/2013,09/12,06/26/2011 Influenza Vaccine High Dose 65+ Yrs IM 7,06/25/2016,05/21/2015 Influenza Vaccine Split 3+ Yrs IM 06/26/2011,12/2009 Influenza Vaccine Tri Adjuva nted 65+ PF IM 06/23/2018 Family History Medical History Relation Name Comments Dementia Brother 1 Jose Heart Disease Brother 2 Don Healthy Daughter 1 Abigail Healthy Daughter 2 Ani Heart Disease Father Robson CAD Cancer Mother Odalys Unknown GI canc er Healthy Sister Osiris Colon Cancer Neg Hx Relation Name Status Comments Brother 1 Jose Brother 2 Don Alive Daughter 1 Abigail Alive Daughter 2 Ani Alive Father Robson (Age 83) Mother Odalys (Age 87) Sister Osiris Alive Social History Tobacco Use Types Packs/Day Years Used Date Smoking Tobacco: Former Cigarettes 0 11/09/1964 - 11/09/1984 Passive Smoke Exposure: Never Smokeless Tobacco: Never Tobacco Cessation:Counseling Given: Not Answered Alcohol Use Standard Drinks/Week Comments Yes 10 (1 standard drink = 0.6 oz pu re alcohol) Financial Resource Strain Answer Date R ecorded How hard is it for you to pa y for the very basics like food, housing, medical care, and heating? Not hard at all 01/06/2022 Food Insecurity Answer Date Recorded In the past 12 months, have you worried that your food would run out before you had money to buy more? Never true 01/06/2022 In the past 12 months, did y ou run out of food and didn't have money to buy more? Never true 01/06/2022 Transportation Needs Answer Date Record ed In the past 12 months, has l ack of transportation kept you from medical appointments or from getting medications? 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 Gender Identity Not on file Sexual Orientation Not on file Occupation Industry Job Start Date Job End Date Not on file Not on file Not on file Not on file Last Filed Vital Signs Vital Sign Reading Time Taken Comments Blood Pressure 127/81 03/22/2024 1:34 PM CDT Pulse 93 03/22/2024 1:34 PM CDT Temperature 36.4 C (97.5 F) 02/03/2024 10:06 AM CDT Respiratory Rate 14 02/03/2024 10:06 AM CDT Oxygen Saturation 97% 03/22/2024 1:34 PM CDT Inhaled Oxygen Concentration - - Weight 69.2 kg (152 lb 8 oz) 03/22/2024 1:34 PM CDT Height 160 cm (5' 3 ) 03/22/2024 1:34 PM CDT Body Mass Index 27.01 03/22/2024 1:34 PM CDT Plan of Treatment Upcoming Encounters Date Type Department Care Team (Late st Contact Info) Description 02/02/2025 1:00 PM CDT Office Visit [facility] Oncology and Hematology [facility] [address] [place] [phone] [place] [address] [place] [address] [place] [phone] 03/22/2025 1:30 PM CDT Office Visit [facility] Internal Medicine Medical [place] [facility] 50 [address] [facility] [address] [place] [address] Patel Cooley MD [address] [facility] [address] [place] [phone] 04/13/2025 10:00 AM CDT Office Visit [facility] Oncology and Hematology [place] [address] [place] [phone] Alfonso Hidalgo MD [address] [facility] [address] [place] [address] Health Maintenance Due Date Last Done Comments ZOSTER VACCINE (1 of 2) 1965 DTAP/TDAP/TD VACCINES (2 - T d or Tdap) 01/20/2017 01/20/2007 RSV VACCINE (60+ or ) (1 - 1-dose 75+ series) 2021 OSTEOPOROSIS SCREENING 01/21/2024 2, 05/24/2019, 02/24/2017, Additional history exists INFLUENZA VACCINE (#1) 2024 2, 06/05/2020, 07/14/2019, Additional history exists COVID-19 Vaccine ( - 2023-2 5 season) 2024 08/20/2021, 11/16/2020, 10/18/2020 [place] Preventative Visit/Annual Wellness Visit 09/21/2024 03/22/2024, 04/24/2023, 01/06/2022, Additional history exists COLORECTAL SCREENING Discontinued 05/20/2017, 05/20/2017, 02/16/2014, Additional history exists Colorectal Cancer Screening Discontinued PNEUMOCOCCAL VACCINE 50+ YEARS Completed 0 01/06/2022, 12/21/2014, 06/26/2011 FIT-DNA Q 3 years Discontinued FIT/FOBT Q 1 year Discontinued Flex Sig/CT Colonography Q 5 years Discontinued Procedures Procedure Name Priority Date/Time Associated Diagnosis Comments XR DEXA BONE DENSITY AXIAL 1 OR MORE SITES Routine 01/20/2022 from Last 3 Months or Most Recently Relevant to Health Maintenance Results * XR DEXA BONE DENSITY AXIAL 1 OR MORE SITES (01/20/2022) Anatomical Region Laterality Modality Other us Abstract Provider DIAGNOSTIC IMAGING ORDERABLES Edited Result - Final from Last 3 Months or Most Recently Relevant to Health [place] [address] [employer] PPO [facility] [place] [address] [employer] PPO MCR Advance Directives For more information, please contact: [phone] Documents on File Type Date Recorded Patient Sys Dir Expl anation Advance Directive POA 10/20/2017 1:43 PM * Full Code (Latest Code Status on File) Date Activated Date Inactivated Comments 05/20/2017 9:14 AM 05/20/2017 1:36 PM * Full Code Date Activated Date Inactivated Comments 02/16/2014 10:01 AM 02/16/2014 3:05 PM Care Teams National Insurance Officer Relationship Specialty Start Date End Date Patel Cooley MD [address] [place] [address] PCP - General Internal Medicine 10/13/12
== END 2024-12-28 14:04 | disposition home or self-care (01) ==
LOC: ANHIMG 14:05
PROVIDERS: PCP Internal Medicine Hematology & Oncology
DX: Z12.31 Encounter for screening mammogram for malignant neoplasm of breast (principal)
CPT/HCPCS: 77063; 77067